=== PATIENT | male | born 1975 | race Caucasian/White ===

== ENCOUNTER 2018-05-18 08:10 | Inpatient (IN) | payer MEDICARE, OTHER ==
[2018-05-18 09:33] LABS: CKMB 1.9 ng/mL (0-6.6); Troponin I 0.079 ng/mL (< 0.028)
[2018-05-18 10:22] LABS: Bilirubin Negative (Negative); Blood, Urine Large (Negative); Clarity CLOUDY (Clear); Glucose, Urine (Dipstick) Negative (Negative); Leukocyte Large (Negative); Nitrite Negative (Negative); Protein, Urine (Dipstick) Negative (Neg-Trace); Specific Gravity, Urine 1.006 (1.002-1.036); Urobilinogen 0.2 mg/dL (0.2-1.0); pH, Urine 6.5 (5.0-9.0)
[2018-05-18 10:24] LABS: Bacteria/HPF Rare-Few HPF (None Seen); RBC/HPF GREATER THAN 50-TNTC HPF (0-3); Squamous Epithelial None Seen HPF (0-3)
[2018-05-18 10:26] LABS: Pathc Cast-AUWi Flag 3.48 (0-2.49)
[2018-05-18 10:31] LABS: Hyaline Casts/LPF 0-3 HYALINE CAST LPF (0-3 Hyaline); Manual Microscopic Reviewed? No Path Casts Seen
[2018-05-18] MEDS ORDERED: Acetaminophen 325 MG TAB PO PRN (12:47)
[2018-05-18] MEDS ORDERED: Ondansetron HCl/PF 4 MG/2 ML Vial IVP PRN (12:47)
[2018-05-18] MEDS ORDERED: Ondansetron ODT 4 MG TAB SL PRN (12:47)
[2018-05-18 13:02] LABS: Troponin I 0.067 ng/mL (< 0.028)
[2018-05-18] MEDS ORDERED: Guaifenesin DM 100-10/5 ML UDCUP PO PRN (13:13)
[2018-05-18] MEDS ORDERED: Senokot 8.6 MG TAB PO PRN (13:13)
[2018-05-18] MEDS ORDERED: Ibuprofen 200 MG TAB PO PRN (13:13)
[2018-05-18 13:27] VITALS: BMI 27.6
--- NOTE | 2018-05-18 13:53 | HP ---
REASON FOR ADMISSION: Likely sepsis with invasive urinary tract infection. HISTORY OF PRESENT ILLNESS: The patient gives history of his blood pressure being elevated to around 200 mm systolic pressures while he was trying to use the bathroom. This happened last evening. He tried to lay down and get comfortable, but he was not feeling well. Next thing he checks his blood pressure dropped down to 90s. He felt a hot myers come on him. He knew he might be getting into a urinary tract infection. The patient has known history of C6 quadriplegia and has a suprapubic catheter. On arrival in the ER, the patient had blood pressures of 90/56 with a temperature of 99 degrees. His suprapubic catheter was changed in the ER. 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 The patient's troponin was also indeterminate. He has no complaints of chest pain or palpitation. The patient has some sensation in both hands, but none in the lower extremities or on the torso. He normally uses a power chair to ambulate and mobilize himself. PAST MEDICAL/SURGICAL HISTORY: C6 injury in 1995 with quadriplegia. He is able to move upper extremities some, but not lower. History of bladder and kidney stones with lithotripsy. Has had a C6 spine surgery after injury in 1995. Has had tendon transfers done in both upper extremities to help with mobilization, suprapubic catheter. CURRENT MEDICATIONS: Ditropan extended release 10 mg daily, imipramine 25 mg twice daily, Flonase nasal spray as needed, ibuprofen 400 mg p.o. q.6 hourly p.r.n. ALLERGIES: No known drug allergies. PERSONAL HISTORY: Does not abuse alcohol or drugs. No history of smoking. Lives with his mother. FAMILY HISTORY: Mother is healthy as far as he knows. He does not know much about his father. CODE STATUS: FULL. Power of carpet repairer is his mom. REVIEW OF SYSTEMS: The following complete review of systems was negative, unless otherwise mentioned in the HPI or below: Constitutional: Weight loss or gain, ability to conduct usual activities. Skin: Rash, itching. Eyes: Double vision, pain. ENT/Mouth: Nose bleeding, neck stiffness, pain, tenderness. Cardiovascular: Palpitations, dyspnea on exertion, orthopnea. Respiratory: Shortness of breath, wheezing, cough, hemoptysis, fever or night sweats. Gastrointestinal: Poor appetite, abdominal pain, heartburn, nausea, vomiting, constipation, or diarrhea. Genitourinary: Urgency, frequency, dysuria, nocturia. Musculoskeletal: Pain, swelling. Neurologic/Psychiatric: Anxiety, depression. Allergy/Immunologic: Skin rash, bleeding tendency. PHYSICAL EXAMINATION: GENERAL: The patient is a 43-year-old male who is currently not in any acute distress. VITAL SIGNS: Blood pressure 96/54, pulse 82 per minute, respiratory rate 16 per minute, temperature 98.4 degrees Fahrenheit, saturating 94% on room air. NECK: Supple. No elevated JVD. HEENT: Extraocular muscles intact. Pupils reacting to light. Oral cavity mucous membranes are dry. No exudates or congestion. CARDIOVASCULAR: S1, S2 heard. Regular rhythm. RESPIRATORY: Air entry 1+ bilateral. No rales or rhonchi. ABDOMEN: Soft, bowel sounds heard. No tenderness, rigidity or guarding. EXTREMITIES: There is generalized wasting of most of his muscle bulk in all 4 extremities. No peripheral edema. VASCULAR: Peripheral pulses are 1+ bilateral. CENTRAL NERVOUS SYSTEM: The patient is able to move both upper extremities. He is paralyzed completely in his lower extremities. He has known history of C6 down quadriplegia. PSYCHIATRIC: No obvious hallucinations or delusions. LABORATORY AND X-RAY FINDINGS: White count 11.9, H and H 13 and 38, platelet count 231, MCV is 90 with 78% neutrophils. Serum bicarbonate 21, BUN 13, creatinine 0.6, serum glucose 117. Troponin I is indeterminate peaking up to 0.07, CK-MB 1.9. BNP 26, albumin is 3.7. UA shows large leukoesterase with 7- 10 wbc's and 4+ bacteria. Chest x-ray done shows no acute cardiopulmonary abnormalities. CT of the abdomen and pelvis done shows no acute abdominal or pelvic pathology. EKG done shows normal sinus rhythm at 65 beats per minute. There is incomplete RBBB seen. CLINICAL IMPRESSION AND PLAN: The patient will be admitted to telemetry for sepsis, likely invasive urinary tract infection with underlying suprapubic catheter. Also, obtain a cortisol level in view of his wide ranging blood pressures. He has received a liter of normal saline in the ER and we will continue him on 80 mL per hour. He will be on cefepime and vancomycin. Blood and urine cultures will be obtained. We will continue his home medications of imipramine, oxybutynin, Colace and Motrin as before. We will consult Dr. Freeman for help with Infectious Disease. Further plan will depend on his blood culture results. Echo with 2D Doppler for LV function will be obtained in view of his demand ischemia, likely from sepsis. The patient states he has had prior cardiac workup years ago. If his troponins were to trend higher up or he becomes symptomatic, might become a candidate for cardiac catheterization and will obtain Cardiology consultation based on how he progresses during his stay here. [facility]
[2018-05-18] MEDS: Sodium Chloride 0.9% 1,000 ML IV SCH (14:37)
[2018-05-18] MEDS: Cefepime 1 GM in Sodium Chloride 0.9% 100 ML IVPB SCH (14:38)
[2018-05-18] MEDS ORDERED: Vancomycin HCl 1 GM in Premix Bag 1 BAG IVPB SCH (21:00)
[2018-05-18] MEDS: Famotidine 20 MG TAB PO SCH (21:40)
[2018-05-18] MEDS: Docusate 100 MG CAP PO SCH (21:40)
[2018-05-18] MEDS: Acetaminophen 325 MG TAB PO PRN (21:42)
[2018-05-18] MEDS: Oxybutynin ER 5 MG TAB PO SCH (21:42)
[2018-05-18] MEDS: Vancomycin HCl 1.25 GM in Sodium Chloride 0.9% 250 ML 250 ML IVPB SCH (22:56)
[2018-05-18] MEDS ORDERED: Bisacodyl 10 MG SUPP PR SCH (23:00)
[2018-05-19] MEDS: Cefepime 1 GM in Sodium Chloride 0.9% 100 ML IVPB SCH ×2 (01:08→15:08)
[2018-05-19] MEDS: Sodium Chloride 0.9% 1,000 ML IV SCH (01:08)
[2018-05-19 06:43] LABS: #Basophils 0.1 thou/uL (0.0-0.2); #Eosinphils 0.2 thou/uL (0.0-0.7); #Lymphocytes 1.6 thou/uL (1.20-3.40); #Monocytes 0.4 thou/uL (0.11-0.59); #Neutrophils 3.7 thou/uL (1.40-6.50); %Basophils 1.1 % (0.0-1.0); %Eosinophils 2.7 % (0.0-10.0); %Lymphocytes 26.9 % (21.0-51.0); %Monocytes 6.9 % (0.0-10.0); %Neutrophils 62.4 % (42.0-75.0); Hemoglobin 12.4 g/dL (14.0-18.0); Mean Corpuscular HGB CONC 33.9 g/dL (32.0-36.0); Mean Corpuscular Hemoglobin 31.5 pg (27.0-31.0); Mean Corpuscular Volume 92.8 fL (78.0-98.0); Mean Platelet Volume 7.6 fL (7.4-10.4); Platelet Count 198 thou/uL (130-400); RBC Distribution Width 11.3 % (11.5-14.5); Red Blood Cell (RBC) Count 3.95 mill/uL (4.70-6.10); White Blood Cell (WBC) Count 5.9 thou/uL (4.8-10.8)
[2018-05-19 07:00] LABS: Anion Gap 8 mmol/L (10-20); BUN (Urea Nitrogen) 4 mg/dL (8.9-20.6); Calc. Creatinine Clearance 218 mL/min (70-130); Calcium 8.5 mg/dL (7.8-10.44); Carbon Dioxide 23 mmol/L (22-29); Chloride 111 mmol/L (98-107); Estimated GFR-MDRD Greater than 90; Glucose 91 mg/dL (70-105); Sodium 138 mmol/L (136-145)
[2018-05-19] MEDS: Docusate 100 MG CAP PO SCH ×2 (09:48→21:38)
[2018-05-19] MEDS: Famotidine 20 MG TAB PO SCH ×2 (09:48→20:39)
[2018-05-19] MEDS: Oxybutynin ER 5 MG TAB PO SCH ×2 (09:48→20:40)
[2018-05-19] MEDS: Vancomycin HCl 1.25 GM in Sodium Chloride 0.9% 250 ML 250 ML IVPB SCH ×3 (09:49→21:29)
[2018-05-19] MEDS: Enoxaparin Sodium 40 MG/0.4 ML SYRINGE SC SCH (09:51)
[2018-05-19] MEDS: Acetaminophen 325 MG TAB PO PRN ×2 (10:10→18:11)
[2018-05-19] MEDS ORDERED: Artificial Tear Sol 15 ML BOT EA EYE PRN (12:40)
--- NOTE | 2018-05-19 12:45 | PDOC.PN ---
- Subjective Encounter Start Date: 05/19/18 Encounter Start Time: 12:44 -: old records requested/rev Pt seen and examined, cahrt reviewed in its entirety, this is my first visit with this patient. Follow up for Catheter associated UTI, preent on admit, growing 3 GNR at present. afebrile, tolerating cefepime 1q IV q 12 no F/C, no N/V/D/C, no CP or sOB all systems reviewed and neg x as above - Objective Resuscitation Status: Resuscitation Status FULL:Full Resuscitation MAR Reviewed: Yes Vital Signs & Weight: Vital Signs (12 hours) Temp Pulse Resp BP Pulse Ox 05/19/18 09:42 98.0 F 74 16 142/83 H 97 05/19/18 03:44 97.9 F 81 14 143/78 H 98 Weight Weight 181 lb 11.2 oz I&O: 05/18/18 05/19/18 05/20/18 06:59 06:59 06:59 Intake Total 1680 Output Total 2600 Balance -920 Result Diagrams: 05/19/18 06:21 05/19/18 06:21 Radiology Reviewed by me: Yes EKG Reviewed by me: Yes Phys Exam - Physical Examination Constitutional: NAD HEENT: PERRLA, moist MMs, sclera anicteric, oral pharynx no lesions Neck: no nodes, no JVD, supple, full ROM Respiratory: no wheezing, no rales, no rhonchi, clear to auscultation bilateral Cardiovascular: RRR, no significant murmur, no rub Gastrointestinal: soft, non-tender, no distention, positive bowel sounds Musculoskeletal: no edema Lymphatic: no nodes Psychiatric: normal affect, A&O x 3 Skin: no rash, normal turgor, cap refill <2 seconds Dx/Plan (1) Catheter-associated urinary tract infection Code(s): T83.511A - I/I REACT D/T INDWELLING URETHRAL CATHETER, INIT; N39.0 - URINARY TRACT INFECTION, SITE NOT SPECIFIED Status: Acute Qualifiers: Indwelling urinary catheter type: cystostomy catheter Encounter type: initial encounter Qualified Code(s): T83.510A - Infection and inflammatory reaction due to cystostomy catheter, initial encounter; N39.0 - Urinary tract infection, site not specified Comment: present on admit, GNR X 3, ncluding presumptive pseudomonas (2) Sepsis Code(s): A41.9 - SEPSIS, UNSPECIFIED ORGANISM Status: Resolved Qualifiers: Sepsis type: sepsis due to unspecified organism Qualified Code(s): A41.9 - Sepsis, unspecified organism (3) Demand ischemia Code(s): I24.8 - OTHER FORMS OF ACUTE ISCHEMIC HEART DISEASE Status: Acute (4) Quadriplegia, unspecified Code(s): G82.50 - QUADRIPLEGIA, UNSPECIFIED Status: Chronic - Plan cont current plan of care, plan discussed w/ family, continue antibiotics * .
[2018-05-19 15:47] LABS: Vancomycin, Trough 24.6 ug/mL
--- NOTE | 2018-05-19 18:07 | CON ---
DATE OF CONSULTATION: 05/19/2018 REASON FOR CONSULTATION: Quadriplegia with general malaise and autonomic dysreflexia episode with concern for infection. HISTORY OF PRESENT ILLNESS: A 43-year-old gentleman with history of C6 injury with partial quadriplegia in 1995, neurogenic bladder with suprapubic catheter, prior nephrolithiasis, which required lithotripsy, who has also a history of autonomic dysreflexia and this time developed general malaise, facial flushing, hypotension and then hypertension with a top systolic blood pressure of 200 and bottom down in the 90s. He was brought to the emergency room where his BP was 90/56. Suprapubic catheter change in the emergency room. Did not have any headaches, no visual symptoms. No dyspnea, cough or chest pain. Does not have sensation in the abdomen, but he felt what he describes as sickness in the stomach. He does not recall any obstruction of the suprapubic catheter. He did not notice any change in the color or fever in the home setting. PAST MEDICAL HISTORY: C6 injury; quadriplegia, which is partial; nephrolithiasis, which has required invasive procedures in the recent past. CURRENT MEDICATIONS: Tylenol, cefepime, Colace, Lovenox, Pepcid, Robitussin, Motrin, senna, vancomycin. ALLERGIES: None. FAMILY HISTORY: Noncontributory. PHYSICAL EXAMINATION: VITAL SIGNS: T-max 97-98, blood pressure 130/70, pulse 74, respiration 16, O2 sat 96%. SKIN: Shows no areas of skin breakdown. Patient has a peripheral IV access and suprapubic catheter with normal appearing exit site. No lymphadenopathy. HEENT: Ocular movements conjugate. Oral cavity normal. NECK: Supple. LUNGS: With symmetric air entry. HEART: S1, S2, regular rate. ABDOMEN: Soft, not distended. BACK: The patient has partial quadriplegia. EXTREMITIES: Trace edema lower extremities. IMAGING: CT abdomen showed no acute abdominal and pelvic pathology. The bladder was found to be collapsed around the catheter and a chest x-ray demonstrated no evidence of acute cardiopulmonary process. LABORATORY DATA: White cell count 5.9, hemoglobin 12.4, platelets 198 with normal differential. Sodium 138, creatinine 0.51. Urinalysis with greater than 50 to too numerous to count WBCs. Cultures with Pseudomonas 25,000-50,000 and 2 other gram negative rods 25,000-50,000 CFUs. ASSESSMENT: 1. Incomplete quadriplegia, history of autonomic dysreflexia. 2. Neurogenic bladder with abnormal urinalysis. Concern for infection. DISCUSSION: The patient presented with those nonspecific symptoms and signs. The urinalysis will necessarily be abnormal in patients with suprapubic catheters colonized and we cannot necessarily blame this finding for the patient 's symptoms and signs that he presented with. He did not have a white cell count elevation or left shift and the blood cultures have remained negative thus far. Other possibilities including thromboembolism need to be considered. He did not have any intra-abdominal inflammatory process or obstructive process noticed in his abdominal CT scan. So, may consider a workup for thromboembolism to complete the evaluation in terms of continue antimicrobial therapy. If the blood cultures remain negative, I would discontinue antimicrobials. HAMLETD
[2018-05-20] MEDS ORDERED: Bisacodyl 10 MG SUPP PR SCH ×2 (00:15→21:00)
[2018-05-20] MEDS: Cefepime 1 GM in Sodium Chloride 0.9% 100 ML IVPB SCH (01:49)
[2018-05-20 06:01] LABS: #Basophils 0.1 thou/uL (0.0-0.2); #Eosinphils 0.2 thou/uL (0.0-0.7); #Lymphocytes 1.5 thou/uL (1.20-3.40); #Monocytes 0.5 thou/uL (0.11-0.59); #Neutrophils 5.3 thou/uL (1.40-6.50); %Basophils 0.8 % (0.0-1.0); %Eosinophils 2.6 % (0.0-10.0); %Lymphocytes 20.2 % (21.0-51.0); %Monocytes 6.2 % (0.0-10.0); %Neutrophils 70.2 % (42.0-75.0); Hemoglobin 13.1 g/dL (14.0-18.0); Mean Corpuscular HGB CONC 34.3 g/dL (32.0-36.0); Mean Corpuscular Hemoglobin 31.4 pg (27.0-31.0); Mean Corpuscular Volume 91.7 fL (78.0-98.0); Mean Platelet Volume 7.4 fL (7.4-10.4); Platelet Count 217 thou/uL (130-400); RBC Distribution Width 11.3 % (11.5-14.5); Red Blood Cell (RBC) Count 4.17 mill/uL (4.70-6.10); White Blood Cell (WBC) Count 7.5 thou/uL (4.8-10.8)
[2018-05-20 06:22] LABS: Anion Gap 13 mmol/L (10-20); BUN (Urea Nitrogen) 6 mg/dL (8.9-20.6); Calc. Creatinine Clearance 191 mL/min (70-130); Calcium 8.9 mg/dL (7.8-10.44); Carbon Dioxide 23 mmol/L (22-29); Chloride 107 mmol/L (98-107); Estimated GFR-MDRD Greater than 90; Glucose 90 mg/dL (70-105); Magnesium 2.5 mg/dL (1.6-2.6); Potassium 4.3 mmol/L (3.5-5.1); Sodium 139 mmol/L (136-145)
[2018-05-20] MEDS: Docusate 100 MG CAP PO SCH (08:38)
[2018-05-20] MEDS: Vancomycin HCl 1.25 GM in Sodium Chloride 0.9% 250 ML 250 ML IVPB SCH (08:38)
[2018-05-20] MEDS: Famotidine 20 MG TAB PO SCH (08:38)
[2018-05-20] MEDS: Enoxaparin Sodium 40 MG/0.4 ML SYRINGE SC SCH (08:38)
[2018-05-20] MEDS: Oxybutynin ER 5 MG TAB PO SCH (08:39)
[2018-05-20 12:29] VITALS: BP 107/62; TEMP 98.3
--- NOTE | 2018-05-20 15:12 | DIS ---
DATE OF ADMISSION: 05/18/2018 DATE OF DISCHARGE: 05/20/2018 PRIMARY CARE PHYSICIAN: Donna Wells D.O. PRIMARY INFECTIOUS DISEASE DOCTOR: Keaton Freeman M.D. PRIMARY UROLOGIST: Neal Dominguez M.D. DISCHARGE DIAGNOSES: 1. Complicated urinary tract infection, catheter associated, present on admission. 2. Sepsis, present on admission, resolved. 3. C6 quadriplegia. 4. Demand ischemia. 5. History of nephrolithiasis. CONSULTATIONS: Dr. Keaton Freeman, 05/19/2018. PROCEDURES: Echocardiogram, 05/19/2018 showed an EF of 60%-65%, mild MR, mild TR. HISTORY AND PHYSICAL: Mr. Segundo is a 43-year-old gentleman with a C6 quadriplegia. He has a chronic indwelling suprapubic catheter. He developed general malaise and a spike in his blood pressure, cam e to the emergency department for evaluation. Workup showed urinary tract infection, both pre and post suprapubic catheter change. He was slightly hypotensive on admission, but responded well to fluids. We were subsequently called for admit. HOSPITAL COURSE: The patient was seen and examined by Dr. Khoury on 05/18/2018. He was continu ed on cefepime for UTI. Infectious Disease consultation was requested. Overnight, 05/18/2018 to 05/19/2018, the patient did well. He was afebrile. He did have some elevat ed blood pressure in the 140s, but did well after I discontinued his fluids. He was seen by Dr. Shiva wilcox that evening, recommended a workup for thromboembolism, which to this date has been negative. Bloo d cultures remain negative, urine cultures growing out multiple germs including E. coli, 2 species of Klebsiella, low colony counts of Staph aureus, which he has not had previously and gamma strep likel y Enterococcus, which he has had that has been susceptible. Review of his previous cultures show he is ESBL positive, but has been sensitive Klebsiella species and sensitive to the other organism s. The patient was requesting to go home, he was subsequently transitioned to p.o. levofloxacin and agreed to follow up with Dr. Donna Wells for followup of his culture results. The patient had no further fevers on antibiotics. An initial urinalysis did show pyuria. The patient was transitioned to p.o. antibiotics to complete 14 days and was subsequently discharged home. PHYSICAL EXAMINATION: The patient was seen and examined on the day of discharge. Discharge plan and disposition were discussed with the patient [id number] at the bedside. DISCHARGE MEDICATIONS: New medications, 1. Levofloxacin 500 mg daily for 12 more days. 2. Ibuprofen as needed. 3. Tofranil 25 mg daily. 4. Ditropan XL 10 mg daily. 5. Oxymetazoline 1 spray nasally daily. 6. Sodium chloride nasal spray daily. 7. Docusate 100 mg p.o. b.i.d. FOLLOWUP APPOINTMENTS: 1. Primary care physician, Dr. Wells within a week. 2. Dr. Dominguez as scheduled. DISCHARGE ACTIVITY: As tolerated. DISCHARGE DIET: No restrictions. DISCHARGE CONDITION: Stable. DISPOSITION: Discharged to home via private vehicle.
--- NOTE | 2018-05-24 13:19 | EKG ---
Test Reason : Blood Pressure : / mmHG Vent. Rate : 065 BPM Atrial Rate : 065 BPM P-R Int : 172 ms QRS Dur : 092 ms QT Int : 420 ms P-R-T Axes : 026 091 043 degrees QTc Int : 436 ms Normal sinus rhythm Possible Left atrial enlargement Rightward axis Incomplete right bundle branch block Borderline ECG Confirmed by CHARLY REED ([id number]), sound editor YADI ESPINOSA ([id number]) on 05/24/2018 1:19:28 PM Referred By: Confirmed By:CHARLY REED
== END 2018-05-20 14:26 | disposition home or self-care (01) | DRG 698 ==
LOC: ERS 08:10 → 2NO 12:17
PROVIDERS: ADMIT Internal Medicine; ATTEND Internal Medicine
DX: T83.511A Infection and inflammatory reaction due to indwelling urethral catheter, initial encounter (principal); A41.9 Sepsis, unspecified organism; G82.54 Quadriplegia, C5-C7 incomplete; I24.8 Other forms of acute ischemic heart disease; N39.0 Urinary tract infection, site not specified; Y84.6 Urinary catheterization as the cause of abnormal reaction of the patient, or of later complication, without mention of misadventure at the time of the procedure; B96.20 Unspecified Escherichia coli [E. coli] as the cause of diseases classified elsewhere; B96.1 Klebsiella pneumoniae [K. pneumoniae] as the cause of diseases classified elsewhere; B95.61 Methicillin susceptible Staphylococcus aureus infection as the cause of diseases classified elsewhere; B95.2 Enterococcus as the cause of diseases classified elsewhere; Z87.442 Personal history of urinary calculi; N31.9 Neuromuscular dysfunction of bladder, unspecified; G90.4 Autonomic dysreflexia
CPT/HCPCS: 36415; 80048; 80202; 82533; 82553; 83605; 83735; 85025; 87040; 87076; 87077; 87086; 87186; 93005; 93306; 96360; 96361; G8987-GO-CM; G8988-GO-CM; G8989-GO-CM; J0692; J1650; J3370; J7050

== ENCOUNTER 2019-10-08 16:36 | Outpatient (CLI) | payer MEDICARE, MEDICAID ==
[2019-10-08 17:24] LABS: Hemoglobin 14.6 g/dL (14.0-18.0); Mean Corpuscular HGB CONC 31.8 g/dL (32.0-36.0); Mean Corpuscular Hemoglobin 28.4 pg (27.0-31.0); Mean Corpuscular Volume 89.5 fL (78.0-98.0); Mean Platelet Volume 7.7 fL (7.4-10.4); Platelet Count 272 thou/uL (130-400); RBC Distribution Width 11.5 % (11.5-14.5); Red Blood Cell (RBC) Count 5.14 mill/uL (4.70-6.10); White Blood Cell (WBC) Count 9.5 thou/uL (4.8-10.8)
[2019-10-08 17:29] LABS: INR-International Normal Ratio 1.1; PTT 32.6 SEC (22.9-36.1); Prothrombin Time 14.1 SEC (12.0-14.7)
[2019-10-08 17:41] LABS: Anion Gap 9 mmol/L (10-20); BUN (Urea Nitrogen) 8 mg/dL (8.9-20.6); Calc. Creatinine Clearance 0 mL/min (70-130); Calcium 10.3 mg/dL (7.8-10.44); Carbon Dioxide 28 mmol/L (22-29); Chloride 103 mmol/L (98-107); Estimated GFR-MDRD Greater than 90; Glucose 65 mg/dL (70-105); Potassium 4.2 mmol/L (3.5-5.1); Sodium 136 mmol/L (136-145)
== END 2019-10-08 16:37 | disposition home or self-care (01) ==
LOC: LABBT 16:36
PROVIDERS: ATTEND Urology
DX: Z01.818 Encounter for other preprocedural examination (principal); N21.0 Calculus in bladder
CPT/HCPCS: 80048; 85027; 85610; 85730; 93005; 93010

== ENCOUNTER 2019-10-15 06:08 | Day surgery (SDC) | payer MEDICARE, MEDICAID ==
[2019-10-08 16:10] VITALS: BMI 25.8
[2019-10-15] MEDS ORDERED: Fentanyl 100 MCG/2 ML VIAL ONE (08:33)
[2019-10-15] MEDS ORDERED: Midazolam HCl 2 mg/2 ml Vial ONE (08:33)
[2019-10-15] MEDS ORDERED: B & O ONE (08:33)
[2019-10-15] MEDS ORDERED: Sodium Chloride 0.9% 100 ML ONE (08:36)
[2019-10-15] MEDS ORDERED: cefTRIAXone\\ROCEPHIN 2 GM VIAL ONE (08:36)
--- NOTE | 2019-10-15 14:08 | OP ---
DATE OF PROCEDURE: 10/15/2019 SERVICE: Urology. PREOPERATIVE DIAGNOSES: Bladder stones, neurogenic bladder, and spinal cord injury. POSTOPERATIVE DIAGNOSES: Bladder stone, neurogenic bladder, and spinal cord injury. PROCEDURE PERFORMED: Cystolitholapaxy of approximately a total of 4 cm worth of stone. INDICATION FOR PROCEDURE: Mr. Segundo is a 44-year-old white male with a spinal cord injury and neurogenic bladder. He does have partial quadriplegia. He is managed with an indwelling SP tube. He has fairly severe bladder spasms, which was recently treated with Botox injections, which seems to be working well. During the cystoscopy, it was noted that he had multiple bladder stones. I discussed treatment of these bladder stones before they became very large, and risks and benefits of the surgery, and he wished to proceed forward. DESCRIPTION OF PROCEDURE: After identification of armband and verification of consent, the patient was brought back to the operating room, where he underwent general anesthesia with an LMA. The decision to use anesthesia was primarily secondary to the patient's history of autonomic dysreflexia rather than for pain management. After appropriate time-out, the patient was placed into dorsal lithotomy position and prepped and draped in usual sterile fashion. A 22-H[place]er rigid cystoscope was introduced per urethra into the bladder. The SP tube was left in place as a drainage system to prevent overdistention of the bladder and for irrigation of stone fragments. Periodically, the SP tube was clamped to allow for cessation of flow for fragmentation of further stones. Using a 550-micron laser fiber, the stones were fragmented into very small pieces and the pieces were then irrigated out with a combination of the cystoscope and an Ellik evacuator. Upon completion, all the stone fragments were removed. Final cystoscopy into the bladder demonstrated both ureters in orthotopic location, unharmed. The SP tube was in good location. The balloon was still intact and was draining well. There was no encrustation on the tubing. Both ureters were unharmed at the end of the procedure. All fragments were removed. Satisfied, the cystoscope was then removed and the bladder was drained via the SP tube. The patient was then taken out of positioning, awakened, and taken to PACU for recovery in stable condition. COMPLICATIONS: None. ESTIMATED BLOOD LOSS: Minimal. RETAINED TUBES AND DRAINS: The patient's known 22-[place]er SP tube, which is left to gravity drainage. SPECIMENS: Stone for stone analysis. DISPOSITION: The patient will be discharged home and follow up with me in approximately 1 to 2 weeks for a postop check. Job ID: [id number]
[2019-10-15] MEDS ORDERED: Lidocaine 1% PF 5 ML VIAL ONE (15:03)
[2019-10-15] MEDS ORDERED: Ondansetron PF 4 MG/2 ML Vial ONE (15:03)
[2019-10-15] MEDS ORDERED: PROPOFOL 200 MG/20 ML VIAL ONE (15:03)
== END 2019-10-15 11:40 | disposition home or self-care (01) ==
LOC: SDC 06:08
PROVIDERS: ATTEND Urology
PROC: 0TCB8ZZ Extirpation of Matter from Bladder, Via Natural or Artificial Opening Endoscopic (ICD-10-PCS; principal; 2019-10-15)
DX: N21.0 Calculus in bladder (principal); N32.89 Other specified disorders of bladder; N31.9 Neuromuscular dysfunction of bladder, unspecified; G82.54 Quadriplegia, C5-C7 incomplete; S14.105S Unspecified injury at C5 level of cervical spinal cord, sequela; Z87.440 Personal history of urinary (tract) infections; Z87.891 Personal history of nicotine dependence; Z79.899 Other long term (current) drug therapy; X58.XXXS Exposure to other specified factors, sequela
CPT/HCPCS: 82365; 88300; J0696; J2001; J2250; J2405; J2704; J3010; J3490

== ENCOUNTER 2023-07-21 17:06 | Inpatient (IN) | payer OTHER, MEDICAID ==
[~2023-07-21 17:06] MED LIST: Iopamidol-370 76% 500 ML MDV (1 ML CHARGE) ONE
[2023-07-21 17:36] LABS: Bacteria/HPF 4+ HPF (None Seen); Bilirubin Negative (Negative); Blood, Urine Trace (Negative); CAUTI Indications for Culture Pelvic or flank pain; Clarity Turbid (Clear); Glucose, Urine (Dipstick) Normal (Negative); Ketone, Urine Negative (Negative); Leukocyte 500 Leu/uL (Negative); Nitrite Negative (Negative); Protein, Urine (Dipstick) 30 mg/dL (Neg-Trace); RBC/HPF 0-3 HPF (0-3); Specific Gravity, Urine 1.004 (1.002-1.036); Squamous Epithelial None Seen HPF (0-3); Urobilinogen Normal mg/dL (Less than 2)
[2023-07-21 17:37] LABS: Urine Culture Reflex Yes Yes
[2023-07-21 17:43] LABS: #Basophils 0.1 thou/uL (0.0-0.2); #Monocytes 0.9 thou/uL (0.11-0.59); #Neutrophils 11.8 thou/uL (1.40-6.50); %Basophils 0.7 % (0.0-1.0); %Eosinophils 0.3 % (0.0-10.0); %Lymphocytes 6.3 % (21.0-51.0); %Monocytes 6.5 % (0.0-10.0); %Neutrophils 85.6 % (42.0-75.0); Hematocrit 43.6 % (42.0-52.0); Hemoglobin 14.6 g/dL (14.0-18.0); Mean Corpuscular HGB CONC 33.5 g/dL (32.0-36.0); Mean Corpuscular Hemoglobin 30.2 pg (27.0-31.0); Mean Corpuscular Volume 90.3 fl (78.0-98.0); Mean Platelet Volume 9.7 fL (7.4-10.4); Platelet Count 301 10x3/uL (130-400); Red Blood Cell (RBC) Count 4.83 mill/uL (4.70-6.10); White Blood Cell (WBC) Count 13.8 10x3/uL (4.8-10.8)
[2023-07-21] MEDS ORDERED: fentaNYL 50 mcg/mL 1 mL Vial ONE ×2 (18:16→19:52)
[2023-07-21] MEDS ORDERED: Cefepime 2 GM VIAL ONE (18:16)
[2023-07-21] MEDS ORDERED: Sodium Chloride 0.9% 100 ML ONE ×2 (18:16→19:32)
[2023-07-21 18:17] LABS: ALT (SGPT) 25 U/L (8-55); AST (SGOT) 17 U/L (5-34); Albumin 4.5 g/dL (3.5-5.0); Alkaline Phosphatase 81 U/L (40-110); Anion Gap 17 mmol/L (10-20); BUN (Urea Nitrogen) 11 mg/dL (8.9-20.6); Bilirubin, Total 0.4 mg/dL (0.2-1.2); Calc. Creatinine Clearance 0 mL/min (70-130); Calcium 9.3 mg/dL (7.8-10.44); Carbon Dioxide 22 mmol/L (22-29); Chloride 102 mmol/L (98-107); Estimated GFR 116; Globulin 2.7 g/dL (2.4-3.5); Glucose 121 mg/dL (70-105); Lipase 160 U/L (8-78); Potassium 4.4 mmol/L (3.5-5.1); Protein, Total 7.2 g/dL (6.0-8.3); Sodium 137 mmol/L (136-145)
[2023-07-21] MEDS ORDERED: Morphine 4 MG/ML VIAL ONE (19:26)
[2023-07-21] MEDS ORDERED: Piperacillin/Tazobactam 4.5 GM VIAL ONE (19:32)
[2023-07-21] MEDS ORDERED: Acetaminophen 650 MG Suppository PR PRN (21:58)
[2023-07-21 23:47] VITALS: BMI 24.7
[2023-07-22] MEDS: Morphine 2 MG/ML VIAL SLOW IVP PRN ×3 (00:16→12:13)
[2023-07-22] MEDS: Ondansetron PF 4 MG/2 ML Vial IVP PRN ×2 (00:37→12:17)
[2023-07-22] MEDS ORDERED: fentaNYL PF 100 MCG/2 ML SYRINGE ONE (01:03)
[2023-07-22] MEDS ORDERED: PROPOFOL 20 ML ONE (01:03)
[2023-07-22] MEDS ORDERED: Lidocaine 2% 6 ML (Jelly) SYR ONE (01:04)
[2023-07-22] MEDS ORDERED: Lidocaine 2% PF 5 ML VIAL ONE (01:04)
[2023-07-22] MEDS ORDERED: Lidocaine 1% PF 5 ML VIAL ONE (01:28)
[2023-07-22] MEDS ORDERED: PROPOFOL 200 MG/20 ML VIAL ONE (01:28)
[2023-07-22] MEDS ORDERED: Ondansetron HCl/PF 4 MG/2 ML Vial IVP PRN (02:20)
[2023-07-22] MEDS ORDERED: Promethazine HCl 25 MG/ML VIAL IM PRN (02:20)
[2023-07-22] MEDS: Piperacillin/Tazobactam 3.375 GM in Sodium Chloride 0.9% 100 ML IVPB SCH ×4 (02:33→23:49)
[2023-07-22] MEDS ORDERED: Ketorolac Tromethamine 30 MG/ML VIAL IVP PRN (02:59)
[2023-07-22] MEDS ORDERED: Iopamidol 15 ML ONE (03:39)
[2023-07-22 04:30] LABS: #Basophils 0.1 thou/uL (0.0-0.2); #Eosinphils 0.1 thou/uL (0.0-0.7); #Monocytes 0.7 thou/uL (0.11-0.59); #Neutrophils 6.9 thou/uL (1.40-6.50); %Basophils 0.6 % (0.0-1.0); %Eosinophils 0.6 % (0.0-10.0); %Lymphocytes 17.7 % (21.0-51.0); %Monocytes 7.4 % (0.0-10.0); %Neutrophils 73.4 % (42.0-75.0); Hematocrit 38.1 % (42.0-52.0); Hemoglobin 12.5 g/dL (14.0-18.0); Mean Corpuscular HGB CONC 32.8 g/dL (32.0-36.0); Mean Corpuscular Hemoglobin 30.5 pg (27.0-31.0); Mean Corpuscular Volume 92.9 fl (78.0-98.0); Mean Platelet Volume 9.8 fL (7.4-10.4); Platelet Count 226 10x3/uL (130-400); RBC Distribution Width 12.3 % (11.5-14.5); White Blood Cell (WBC) Count 9.4 10x3/uL (4.8-10.8)
[2023-07-22] MEDS ORDERED: Piperacillin/Tazobactam 4.5 GM in Sodium Chloride 0.9% 100 ML IVPB SCH (06:00)
[2023-07-22 06:45] LABS: Anion Gap 16 mmol/L (10-20); BUN (Urea Nitrogen) 6 mg/dL (8.9-20.6); Calc. Creatinine Clearance 181 mL/min (70-130); Carbon Dioxide 20 mmol/L (22-29); Chloride 109 mmol/L (98-107); Estimated GFR 124; Glucose 98 mg/dL (70-105); Potassium 3.5 mmol/L (3.5-5.1); Sodium 141 mmol/L (136-145)
[2023-07-22] MEDS: Acetaminophen 325 MG TAB PO PRN ×2 (08:21→14:06)
[2023-07-22] MEDS: Famotidine 20 MG TAB PO SCH ×2 (08:21→19:49)
[2023-07-22] MEDS: Famotidine/PF 20 mg/2ml Vial SLOW IVP SCH ×2 (08:27→20:03)
[2023-07-22] MEDS ORDERED: Adenosine 6 MG/2 ML VIAL IVP SCH (13:00)
[2023-07-22] MEDS ORDERED: fentaNYL 50 mcg/mL 1 mL Vial SLOW IVP SCH ×2 (13:30→15:00)
[2023-07-22] MEDS: Baclofen 10 MG TAB PO PRN (14:02)
[2023-07-22] MEDS ORDERED: Lorazepam 2 MG/ML VIAL SLOW IVP SCH (14:15)
[2023-07-22] MEDS ORDERED: Hyoscyamine SL 0.125 MG TAB SL SCH (15:00)
[2023-07-22] MEDS: Oxybutynin 5 MG TAB PO SCH ×2 (15:04→19:49)
[2023-07-22] MEDS: Hyoscyamine SL 0.125 MG TAB SL PRN (21:46)
[2023-07-22] MEDS: Ondansetron ODT 4 MG TAB PO PRN (21:54)
[2023-07-23] MEDS: Morphine 4 MG/ML VIAL SLOW IVP PRN ×2 (00:50→10:06)
[2023-07-23] MEDS: Hyoscyamine SL 0.125 MG TAB SL PRN ×3 (02:05→19:36)
[2023-07-23] MEDS: Oxybutynin 5 MG TAB PO SCH ×3 (06:40→21:25)
[2023-07-23] MEDS: Baclofen 10 MG TAB PO PRN ×3 (06:47→19:36)
[2023-07-23] MEDS: Ondansetron PF 4 MG/2 ML Vial IVP PRN ×2 (06:47→19:40)
[2023-07-23] MEDS: Famotidine 20 MG TAB PO SCH ×2 (08:43→21:00)
[2023-07-23] MEDS: Famotidine/PF 20 mg/2ml Vial SLOW IVP SCH ×2 (08:43→21:26)
[2023-07-23] MEDS: Piperacillin/Tazobactam 3.375 GM in Sodium Chloride 0.9% 100 ML IVPB SCH ×2 (08:43→16:19)
[2023-07-23] MEDS: Mirabegron ER 25 MG ER.TAB PO SCH (09:55)
[2023-07-23] MEDS ORDERED: Ondansetron PF 4 MG/2 ML Vial IVP PRN (10:30)
[2023-07-23] MEDS: Bisacodyl 10 MG SUPP PR SCH (11:01)
[2023-07-23] MEDS ORDERED: Metoprolol Tartrate 5 MG/5 ML VIAL IVP SCH (11:21)
[2023-07-23] MEDS ORDERED: Metoprolol Tartrate 5 MG/5 ML VIAL ONE (11:27)
[2023-07-23] MEDS ORDERED: Esmolol 2,500 MG/250 ML 250 ML IVPB SCH (11:30)
[2023-07-23] MEDS ORDERED: fentaNYL 50 mcg/mL 1 mL Vial ONE (12:58)
[2023-07-23] MEDS ORDERED: fentaNYL 50 mcg/mL 1 mL Vial SLOW IVP SCH (13:15)
[2023-07-23] MEDS ORDERED: Polyethylene Glycol 3350 17 GM Packet PO SCH (16:30)
[2023-07-23] MEDS: fentaNYL 50 mcg/mL 1 mL Vial SLOW IVP PRN (19:42)
[2023-07-23] MEDS: Baclofen 10 MG TAB PO SCH (21:00)
[2023-07-23] MEDS: Acetaminophen 325 MG TAB PO PRN (21:41)
[2023-07-24] MEDS: Piperacillin/Tazobactam 3.375 GM in Sodium Chloride 0.9% 100 ML IVPB SCH ×4 (00:20→23:47)
[2023-07-24 05:00] LABS: #Basophils 0.1 thou/uL (0.0-0.2); #Eosinphils 0.1 thou/uL (0.0-0.7); #Monocytes 0.6 thou/uL (0.11-0.59); #Neutrophils 7.7 thou/uL (1.40-6.50); %Eosinophils 0.9 % (0.0-10.0); %Lymphocytes 13.3 % (21.0-51.0); %Monocytes 5.6 % (0.0-10.0); %Neutrophils 78.4 % (42.0-75.0); Hematocrit 35.5 % (42.0-52.0); Hemoglobin 11.5 g/dL (14.0-18.0); Mean Corpuscular HGB CONC 32.4 g/dL (32.0-36.0); Mean Corpuscular Hemoglobin 30.5 pg (27.0-31.0); Mean Corpuscular Volume 94.2 fl (78.0-98.0); Mean Platelet Volume 10.1 fL (7.4-10.4); Platelet Count 234 10x3/uL (130-400); RBC Distribution Width 12.6 % (11.5-14.5); Red Blood Cell (RBC) Count 3.77 mill/uL (4.70-6.10); White Blood Cell (WBC) Count 9.9 10x3/uL (4.8-10.8)
[2023-07-24 05:34] LABS: Anion Gap 19 mmol/L (10-20); BUN (Urea Nitrogen) 4 mg/dL (8.9-20.6); Calc. Creatinine Clearance 160 mL/min (70-130); Calcium 8.2 mg/dL (7.8-10.44); Carbon Dioxide 17 mmol/L (22-29); Chloride 107 mmol/L (98-107); Estimated GFR 120; Glucose 64 mg/dL (70-105); Potassium 3.5 mmol/L (3.5-5.1); Sodium 139 mmol/L (136-145)
[2023-07-24] MEDS: Hyoscyamine SL 0.125 MG TAB SL PRN ×2 (05:56→21:55)
[2023-07-24] MEDS: Mirabegron ER 25 MG ER.TAB PO SCH (07:41)
[2023-07-24] MEDS: Famotidine 20 MG TAB PO SCH (07:41)
[2023-07-24] MEDS: Bisacodyl 10 MG SUPP PR SCH (07:42)
[2023-07-24] MEDS: Famotidine/PF 20 mg/2ml Vial SLOW IVP SCH (07:42)
[2023-07-24] MEDS: Oxybutynin 5 MG TAB PO SCH ×3 (07:42→20:26)
[2023-07-24] MEDS: Polyethylene Glycol 3350 17 GM Packet PO SCH (07:43)
[2023-07-24] MEDS: Ondansetron PF 4 MG/2 ML Vial IVP PRN ×3 (07:49→17:18)
[2023-07-24] MEDS: fentaNYL 50 mcg/mL 1 mL Vial SLOW IVP PRN ×7 (07:57→21:54)
[2023-07-24] MEDS: Acetaminophen 325 MG TAB PO PRN ×2 (08:44→16:55)
[2023-07-24] MEDS: Baclofen 10 MG TAB PO PRN ×2 (09:29→17:02)
[2023-07-24] MEDS ORDERED: Morphine 4 MG/ML VIAL SLOW IVP SCH (09:30)
[2023-07-24] MEDS: Ondansetron ODT 4 MG TAB PO PRN (19:22)
[2023-07-24] MEDS: Metoprolol Tartrate 25 MG TAB PO SCH (20:25)
[2023-07-24] MEDS: Baclofen 10 MG TAB PO SCH (20:26)
[2023-07-24] MEDS ORDERED: Simethicone Chewable 80 MG TAB PO SCH (22:15)
[2023-07-24] MEDS ORDERED: Sodium Chloride 0.9% 500 ML IV SCH (23:45)
[2023-07-24] MEDS ORDERED: FLU VACC QS2023-24(6MOS UP)/PF 60 MCG/0.5 ML SYRINGE IM ONE (23:45)
[2023-07-25] MEDS: D5 1/2 NS w/10 mEq KCl 1,000 ML/1,000 ML BAG IV SCH ×2 (00:04→13:17)
[2023-07-25] MEDS: fentaNYL 50 mcg/mL 1 mL Vial SLOW IVP PRN ×6 (01:20→19:04)
[2023-07-25] MEDS: Baclofen 10 MG TAB PO PRN ×2 (06:26→14:16)
[2023-07-25] MEDS: Ondansetron ODT 4 MG TAB PO PRN (06:52)
[2023-07-25] MEDS: Piperacillin/Tazobactam 3.375 GM in Sodium Chloride 0.9% 100 ML IVPB SCH ×2 (08:29→16:11)
[2023-07-25] MEDS: Metoprolol Tartrate 25 MG TAB PO SCH ×2 (08:55→21:47)
[2023-07-25] MEDS: Bisacodyl 10 MG SUPP PR SCH (09:09)
[2023-07-25] MEDS: Mirabegron ER 25 MG ER.TAB PO SCH (09:11)
[2023-07-25] MEDS: Polyethylene Glycol 3350 17 GM Packet PO SCH (09:12)
[2023-07-25] MEDS: Oxybutynin 5 MG TAB PO SCH ×3 (09:14→20:13)
[2023-07-25] MEDS ORDERED: Magnesium Oxide 400 MG TAB PO SCH (10:15)
[2023-07-25] MEDS: Hyoscyamine SL 0.125 MG TAB SL PRN (10:45)
[2023-07-25] MEDS: Acetaminophen 325 MG TAB PO PRN ×2 (10:45→20:36)
[2023-07-25] MEDS: Promethazine HCl 12.5 MG in Sodium Chloride 0.9% 50 ML IVPB SCH ×2 (11:40→17:15)
[2023-07-25] MEDS ORDERED: Nortriptyline 10 MG CAP PO SCH (14:15)
[2023-07-25] MEDS: Baclofen 10 MG TAB PO SCH (20:12)
[2023-07-25] MEDS: Ondansetron PF 4 MG/2 ML Vial IVP PRN (20:29)
[2023-07-26] MEDS: Promethazine HCl 12.5 MG in Sodium Chloride 0.9% 50 ML IVPB SCH ×4 (00:12→18:00)
[2023-07-26] MEDS: Piperacillin/Tazobactam 3.375 GM in Sodium Chloride 0.9% 100 ML IVPB SCH ×4 (00:44→23:46)
[2023-07-26] MEDS: D5 1/2 NS w/10 mEq KCl 1,000 ML/1,000 ML BAG IV SCH ×2 (02:33→18:14)
[2023-07-26 04:11] LABS: #Basophils 0.1 thou/uL (0.0-0.2); #Eosinphils 0.2 thou/uL (0.0-0.7); #Monocytes 0.5 thou/uL (0.11-0.59); #Neutrophils 3.6 thou/uL (1.40-6.50); %Basophils 1.2 % (0.0-1.0); %Lymphocytes 23.3 % (21.0-51.0); %Monocytes 8.3 % (0.0-10.0); %Neutrophils 62.2 % (42.0-75.0); Hematocrit 35.3 % (42.0-52.0); Hemoglobin 11.5 g/dL (14.0-18.0); Mean Corpuscular HGB CONC 32.6 g/dL (32.0-36.0); Mean Corpuscular Hemoglobin 30.4 pg (27.0-31.0); Mean Corpuscular Volume 93.4 fl (78.0-98.0); Mean Platelet Volume 9.2 fL (7.4-10.4); Platelet Count 239 10x3/uL (130-400); RBC Distribution Width 12.8 % (11.5-14.5); Red Blood Cell (RBC) Count 3.78 mill/uL (4.70-6.10); White Blood Cell (WBC) Count 5.8 10x3/uL (4.8-10.8)
[2023-07-26 04:39] LABS: Anion Gap 14 mmol/L (10-20); BUN (Urea Nitrogen) Less than 4 mg/dL (8.9-20.6); Calc. Creatinine Clearance 160 mL/min (70-130); Calcium 8.4 mg/dL (7.8-10.44); Carbon Dioxide 19 mmol/L (22-29); Chloride 108 mmol/L (98-107); Estimated GFR 116; Glucose 112 mg/dL (70-105); Potassium 3.3 mmol/L (3.5-5.1); Sodium 138 mmol/L (136-145)
[2023-07-26] MEDS: Baclofen 10 MG TAB PO PRN ×4 (04:56→22:44)
[2023-07-26] MEDS: Acetaminophen 325 MG TAB PO PRN ×4 (05:12→21:30)
[2023-07-26] MEDS: Hyoscyamine SL 0.125 MG TAB SL PRN ×3 (05:13→21:31)
[2023-07-26] MEDS: Ondansetron PF 4 MG/2 ML Vial IVP PRN (05:59)
[2023-07-26] MEDS: Polyethylene Glycol 3350 17 GM Packet PO SCH (08:36)
[2023-07-26] MEDS: Magnesium Oxide 400 MG TAB PO SCH (08:36)
[2023-07-26] MEDS: Bisacodyl 10 MG SUPP PR SCH ×2 (08:36→18:48)
[2023-07-26] MEDS: Mirabegron ER 25 MG ER.TAB PO SCH (08:36)
[2023-07-26] MEDS: Metoprolol Tartrate 25 MG TAB PO SCH ×2 (08:42→20:06)
[2023-07-26] MEDS ORDERED: Potassium Chloride 20 MEQ TAB PO SCH (09:15)
[2023-07-26] MEDS: Oxybutynin 5 MG TAB PO SCH ×3 (09:21→20:08)
[2023-07-26] MEDS: Nitroglycerin 2% Ointment 1 INCH/1 GM Packet TOP PRN (10:12)
[2023-07-26] MEDS: Baclofen 10 MG TAB PO SCH (20:05)
[2023-07-26] MEDS: Nortriptyline 10 MG CAP PO SCH (20:09)
[2023-07-26] MEDS: fentaNYL 50 mcg/mL 1 mL Vial SLOW IVP PRN ×2 (21:36→23:05)
[2023-07-27] MEDS: Promethazine HCl 12.5 MG in Sodium Chloride 0.9% 50 ML IVPB SCH ×5 (00:16→23:53)
[2023-07-27 04:12] LABS: #Basophils 0.1 thou/uL (0.0-0.2); #Eosinphils 0.3 thou/uL (0.0-0.7); #Monocytes 0.6 thou/uL (0.11-0.59); %Basophils 1.2 % (0.0-1.0); %Eosinophils 5.1 % (0.0-10.0); %Lymphocytes 23.3 % (21.0-51.0); %Monocytes 9.3 % (0.0-10.0); %Neutrophils 60.5 % (42.0-75.0); Hematocrit 35.6 % (42.0-52.0); Mean Corpuscular HGB CONC 33.7 g/dL (32.0-36.0); Mean Corpuscular Hemoglobin 31.3 pg (27.0-31.0); Mean Platelet Volume 9.1 fL (7.4-10.4); Platelet Count 244 10x3/uL (130-400); RBC Distribution Width 12.8 % (11.5-14.5); Red Blood Cell (RBC) Count 3.83 mill/uL (4.70-6.10); White Blood Cell (WBC) Count 6.6 10x3/uL (4.8-10.8)
[2023-07-27 04:54] LABS: Anion Gap 11 mmol/L (10-20); BUN (Urea Nitrogen) Less than 4 mg/dL (8.9-20.6); Calc. Creatinine Clearance 194 mL/min (70-130); Calcium 8.7 mg/dL (7.8-10.44); Carbon Dioxide 24 mmol/L (22-29); Chloride 106 mmol/L (98-107); Estimated GFR 124; Glucose 94 mg/dL (70-105); Potassium 3.1 mmol/L (3.5-5.1); Sodium 138 mmol/L (136-145)
[2023-07-27] MEDS ORDERED: Potassium Chloride 20 MEQ TAB PO SCH (06:15)
[2023-07-27] MEDS: Magnesium Oxide 400 MG TAB PO SCH (08:35)
[2023-07-27] MEDS: Metoprolol Tartrate 25 MG TAB PO SCH ×2 (08:35→21:08)
[2023-07-27] MEDS: Oxybutynin 5 MG TAB PO SCH ×3 (08:35→20:53)
[2023-07-27] MEDS: Mirabegron ER 25 MG ER.TAB PO SCH (08:35)
[2023-07-27] MEDS: Piperacillin/Tazobactam 3.375 GM in Sodium Chloride 0.9% 100 ML IVPB SCH ×3 (08:36→23:53)
[2023-07-27] MEDS: Bisacodyl 10 MG SUPP PR SCH (08:36)
[2023-07-27] MEDS: D5 1/2 NS w/10 mEq KCl 1,000 ML/1,000 ML BAG IV SCH ×3 (08:36→22:01)
[2023-07-27] MEDS: Polyethylene Glycol 3350 17 GM Packet PO SCH (08:37)
[2023-07-27] MEDS: Baclofen 10 MG TAB PO PRN ×2 (11:39→16:52)
[2023-07-27] MEDS: fentaNYL 50 mcg/mL 1 mL Vial SLOW IVP PRN (11:48)
[2023-07-27] MEDS: Acetaminophen 325 MG TAB PO PRN ×2 (12:45→22:49)
[2023-07-27] MEDS ORDERED: Morphine 4 MG/ML VIAL SLOW IVP SCH (13:15)
[2023-07-27] MEDS: Baclofen 10 MG TAB PO SCH (20:54)
[2023-07-27] MEDS: Nortriptyline 10 MG CAP PO SCH (20:54)
[2023-07-28] MEDS: Promethazine HCl 12.5 MG in Sodium Chloride 0.9% 50 ML IVPB SCH ×3 (06:23→19:44)
[2023-07-28] MEDS: fentaNYL 50 mcg/mL 1 mL Vial SLOW IVP PRN ×2 (08:15→23:31)
[2023-07-28] MEDS: Piperacillin/Tazobactam 3.375 GM in Sodium Chloride 0.9% 100 ML IVPB SCH ×2 (08:27→16:10)
[2023-07-28] MEDS: Baclofen 10 MG TAB PO PRN (08:28)
[2023-07-28] MEDS: Mirabegron ER 25 MG ER.TAB PO SCH (08:29)
[2023-07-28] MEDS: Metoprolol Tartrate 25 MG TAB PO SCH ×2 (08:30→21:07)
[2023-07-28] MEDS: Oxybutynin 5 MG TAB PO SCH ×3 (08:30→21:07)
[2023-07-28] MEDS: Magnesium Oxide 400 MG TAB PO SCH (08:30)
[2023-07-28] MEDS: Bisacodyl 10 MG SUPP PR SCH (09:05)
[2023-07-28] MEDS: Hyoscyamine SL 0.125 MG TAB SL PRN ×2 (09:06→23:07)
[2023-07-28] MEDS: Polyethylene Glycol 3350 17 GM Packet PO SCH (09:06)
[2023-07-28] MEDS ORDERED: Morphine 4 MG/ML VIAL ONE (09:28)
[2023-07-28] MEDS: Ondansetron PF 4 MG/2 ML Vial IVP PRN ×2 (09:45→14:32)
[2023-07-28] MEDS ORDERED: Morphine 4 MG/ML VIAL SLOW IVP SCH (09:45)
[2023-07-28] MEDS ORDERED: Electrolyte Replacement Protocol 1 EACH FS SCH (10:08)
[2023-07-28] MEDS ORDERED: Potassium Chloride 20 MEQ TAB PO SCH (10:15)
[2023-07-28 10:32] LABS: Anion Gap 21 mmol/L (10-20); BUN (Urea Nitrogen) Less than 4 mg/dL (8.9-20.6); Calc. Creatinine Clearance 157 mL/min (70-130); Calcium 9.4 mg/dL (7.8-10.44); Carbon Dioxide 17 mmol/L (22-29); Chloride 105 mmol/L (98-107); Estimated GFR 116; Glucose 122 mg/dL (70-105); Potassium 5.1 mmol/L (3.5-5.1); Sodium 138 mmol/L (136-145)
[2023-07-28] MEDS: D5 1/2 NS w/10 mEq KCl 1,000 ML/1,000 ML BAG IV SCH (10:59)
[2023-07-28 11:53] LABS: #Basophils 0.1 thou/uL (0.0-0.2); #Eosinphils 0.2 thou/uL (0.0-0.7); #Monocytes 0.8 thou/uL (0.11-0.59); #Neutrophils 10.8 thou/uL (1.40-6.50); %Basophils 0.5 % (0.0-1.0); %Eosinophils 1.3 % (0.0-10.0); %Lymphocytes 5.7 % (21.0-51.0); %Monocytes 6.1 % (0.0-10.0); %Neutrophils 85.9 % (42.0-75.0); Hematocrit 37.3 % (42.0-52.0); Hemoglobin 12.6 g/dL (14.0-18.0); Mean Corpuscular HGB CONC 33.8 g/dL (32.0-36.0); Mean Corpuscular Hemoglobin 31.3 pg (27.0-31.0); Mean Corpuscular Volume 92.6 fl (78.0-98.0); Mean Platelet Volume 9.5 fL (7.4-10.4); Platelet Count 270 10x3/uL (130-400); RBC Distribution Width 12.9 % (11.5-14.5); Red Blood Cell (RBC) Count 4.03 mill/uL (4.70-6.10); White Blood Cell (WBC) Count 12.5 10x3/uL (4.8-10.8)
[2023-07-28] MEDS: Baclofen 10 MG TAB PO SCH ×2 (14:32→21:05)
[2023-07-28] MEDS: Nortriptyline 10 MG CAP PO SCH (21:05)
[2023-07-29] MEDS: Baclofen 10 MG TAB PO SCH ×5 (00:31→20:03)
[2023-07-29] MEDS: fentaNYL 50 mcg/mL 1 mL Vial SLOW IVP PRN ×5 (00:36→22:22)
[2023-07-29] MEDS: Piperacillin/Tazobactam 3.375 GM in Sodium Chloride 0.9% 100 ML IVPB SCH ×3 (00:53→15:03)
[2023-07-29] MEDS: Nitroglycerin 2% Ointment 1 INCH/1 GM Packet TOP PRN ×2 (01:50→18:26)
[2023-07-29] MEDS: Promethazine HCl 12.5 MG in Sodium Chloride 0.9% 50 ML IVPB SCH ×5 (01:58→23:56)
[2023-07-29] MEDS ORDERED: Morphine 2 MG/ML VIAL SLOW IVP SCH (02:00)
[2023-07-29 03:39] LABS: #Basophils 0.1 thou/uL (0.0-0.2); #Eosinphils 0.2 thou/uL (0.0-0.7); #Monocytes 0.8 thou/uL (0.11-0.59); #Neutrophils 8.3 thou/uL (1.40-6.50); %Basophils 0.7 % (0.0-1.0); %Eosinophils 1.6 % (0.0-10.0); %Lymphocytes 12.7 % (21.0-51.0); %Monocytes 7.7 % (0.0-10.0); %Neutrophils 76.9 % (42.0-75.0); Hematocrit 39.9 % (42.0-52.0); Mean Corpuscular HGB CONC 32.6 g/dL (32.0-36.0); Mean Corpuscular Hemoglobin 31.1 pg (27.0-31.0); Mean Platelet Volume 9.5 fL (7.4-10.4); Platelet Count 257 10x3/uL (130-400); Red Blood Cell (RBC) Count 4.18 mill/uL (4.70-6.10); White Blood Cell (WBC) Count 10.7 10x3/uL (4.8-10.8)
[2023-07-29 03:45] LABS: Mean Corpuscular Volume 95.5 fl (78.0-98.0)
[2023-07-29 04:07] LABS: Anion Gap 15 mmol/L (10-20); BUN (Urea Nitrogen) 4 mg/dL (8.9-20.6); Calc. Creatinine Clearance 185 mL/min (70-130); Calcium 9.4 mg/dL (7.8-10.44); Carbon Dioxide 23 mmol/L (22-29); Chloride 103 mmol/L (98-107); Estimated GFR 122; Glucose 75 mg/dL (70-105); Potassium 3.6 mmol/L (3.5-5.1); Sodium 137 mmol/L (136-145)
[2023-07-29] MEDS: Ondansetron PF 4 MG/2 ML Vial IVP PRN (08:40)
[2023-07-29] MEDS: Metoprolol Tartrate 25 MG TAB PO SCH ×2 (08:42→20:03)
[2023-07-29] MEDS: Mirabegron ER 25 MG ER.TAB PO SCH (08:42)
[2023-07-29] MEDS: Acetaminophen 325 MG TAB PO PRN ×3 (08:42→18:42)
[2023-07-29] MEDS: Oxybutynin 5 MG TAB PO SCH ×3 (08:43→20:04)
[2023-07-29] MEDS: Magnesium Oxide 400 MG TAB PO SCH (08:43)
[2023-07-29] MEDS: Bisacodyl 10 MG SUPP PR SCH (11:20)
[2023-07-29] MEDS: Polyethylene Glycol 3350 17 GM Packet PO SCH (11:20)
[2023-07-29] MEDS: Hyoscyamine SL 0.125 MG TAB SL PRN ×2 (15:03→21:52)
[2023-07-29] MEDS ORDERED: Morphine 2 MG/ML VIAL SLOW IVP PRN (16:03)
[2023-07-29] MEDS: Nitroglycerin 4.9 GM Bottle SL PRN ×3 (17:49→18:02)
[2023-07-29] MEDS: Nortriptyline 10 MG CAP PO SCH (20:03)
[2023-07-30] MEDS: Piperacillin/Tazobactam 3.375 GM in Sodium Chloride 0.9% 100 ML IVPB SCH ×2 (00:24→08:24)
[2023-07-30] MEDS: fentaNYL 50 mcg/mL 1 mL Vial SLOW IVP PRN ×4 (00:25→21:51)
[2023-07-30] MEDS: Hyoscyamine SL 0.125 MG TAB SL PRN ×3 (05:51→21:36)
[2023-07-30] MEDS: Acetaminophen 325 MG TAB PO PRN ×2 (05:58→09:13)
[2023-07-30] MEDS: Ondansetron PF 4 MG/2 ML Vial IVP PRN (06:14)
[2023-07-30] MEDS: Promethazine HCl 12.5 MG in Sodium Chloride 0.9% 50 ML IVPB SCH ×3 (06:26→18:47)
[2023-07-30 07:49] LABS: #Basophils 0.1 thou/uL (0.0-0.2); #Eosinphils 0.2 thou/uL (0.0-0.7); #Monocytes 0.6 thou/uL (0.11-0.59); #Neutrophils 7.6 thou/uL (1.40-6.50); %Basophils 0.6 % (0.0-1.0); %Eosinophils 1.8 % (0.0-10.0); %Lymphocytes 9.4 % (21.0-51.0); %Monocytes 6.9 % (0.0-10.0); %Neutrophils 80.9 % (42.0-75.0); Hematocrit 38.3 % (42.0-52.0); Hemoglobin 12.6 g/dL (14.0-18.0); Mean Corpuscular HGB CONC 32.9 g/dL (32.0-36.0); Mean Corpuscular Volume 94.3 fl (78.0-98.0); Mean Platelet Volume 9.3 fL (7.4-10.4); Platelet Count 222 10x3/uL (130-400); Red Blood Cell (RBC) Count 4.06 mill/uL (4.70-6.10); White Blood Cell (WBC) Count 9.3 10x3/uL (4.8-10.8)
[2023-07-30 08:12] LABS: Anion Gap 17 mmol/L (10-20); BUN (Urea Nitrogen) 5 mg/dL (8.9-20.6); Calc. Creatinine Clearance 204 mL/min (70-130); Calcium 8.6 mg/dL (7.8-10.44); Carbon Dioxide 22 mmol/L (22-29); Chloride 102 mmol/L (98-107); Estimated GFR 124; Glucose 73 mg/dL (70-105); Sodium 138 mmol/L (136-145)
[2023-07-30] MEDS: Metoprolol Tartrate 25 MG TAB PO SCH ×2 (08:51→21:37)
[2023-07-30] MEDS: Magnesium Oxide 400 MG TAB PO SCH (08:51)
[2023-07-30] MEDS: Bisacodyl 10 MG SUPP PR SCH (08:51)
[2023-07-30] MEDS: Baclofen 10 MG TAB PO SCH ×4 (08:51→19:39)
[2023-07-30] MEDS: Polyethylene Glycol 3350 17 GM Packet PO SCH (08:51)
[2023-07-30] MEDS: Mirabegron ER 25 MG ER.TAB PO SCH (08:51)
[2023-07-30] MEDS: Oxybutynin 5 MG TAB PO SCH ×3 (10:35→19:39)
[2023-07-30] MEDS ORDERED: Potassium Chloride 20 MEQ TAB PO SCH (11:15)
[2023-07-30] MEDS: Digoxin 0.05 MG/ML Oral Solution PO SCH (11:28)
[2023-07-30] MEDS: Acetaminophen/Codeine 30-300mg Tablet PO SCH ×2 (13:38→19:36)
[2023-07-30] MEDS: Nortriptyline 10 MG CAP PO SCH (19:39)
[2023-07-31] MEDS: Promethazine HCl 12.5 MG in Sodium Chloride 0.9% 50 ML IVPB SCH ×3 (00:01→13:22)
[2023-07-31] MEDS: Acetaminophen 325 MG TAB PO PRN (00:06)
[2023-07-31] MEDS: Acetaminophen/Codeine 30-300mg Tablet PO SCH ×4 (03:20→21:18)
[2023-07-31 04:07] LABS: #Basophils 0.1 thou/uL (0.0-0.2); #Eosinphils 0.2 thou/uL (0.0-0.7); #Monocytes 0.7 thou/uL (0.11-0.59); #Neutrophils 5.2 thou/uL (1.40-6.50); %Eosinophils 2.7 % (0.0-10.0); %Lymphocytes 20.6 % (21.0-51.0); %Monocytes 9.4 % (0.0-10.0); %Neutrophils 65.8 % (42.0-75.0); Hematocrit 37.9 % (42.0-52.0); Hemoglobin 12.9 g/dL (14.0-18.0); Mean Corpuscular Hemoglobin 31.5 pg (27.0-31.0); Mean Corpuscular Volume 92.4 fl (78.0-98.0); Mean Platelet Volume 9.5 fL (7.4-10.4); Platelet Count 239 10x3/uL (130-400); RBC Distribution Width 12.9 % (11.5-14.5); White Blood Cell (WBC) Count 7.9 10x3/uL (4.8-10.8)
[2023-07-31 04:28] LABS: Anion Gap 15 mmol/L (10-20); BUN (Urea Nitrogen) 5 mg/dL (8.9-20.6); Calc. Creatinine Clearance 208 mL/min (70-130); Calcium 8.9 mg/dL (7.8-10.44); Carbon Dioxide 22 mmol/L (22-29); Chloride 105 mmol/L (98-107); Estimated GFR 125; Glucose 81 mg/dL (70-105); Potassium 3.6 mmol/L (3.5-5.1); Sodium 138 mmol/L (136-145)
[2023-07-31] MEDS: fentaNYL 50 mcg/mL 1 mL Vial SLOW IVP PRN ×4 (05:07→16:54)
[2023-07-31] MEDS: Hyoscyamine SL 0.125 MG TAB SL PRN (06:01)
[2023-07-31] MEDS: Polyethylene Glycol 3350 17 GM Packet PO SCH (09:07)
[2023-07-31] MEDS: Mirabegron ER 25 MG ER.TAB PO SCH (09:07)
[2023-07-31] MEDS: Magnesium Oxide 400 MG TAB PO SCH (09:08)
[2023-07-31] MEDS: Metoprolol Tartrate 25 MG TAB PO SCH ×2 (09:08→21:19)
[2023-07-31] MEDS: Baclofen 10 MG TAB PO SCH ×4 (09:08→21:19)
[2023-07-31] MEDS: Bisacodyl 10 MG SUPP PR SCH (09:55)
[2023-07-31] MEDS: Oxybutynin 5 MG TAB PO SCH ×3 (09:57→21:19)
[2023-07-31] MEDS: Digoxin 0.05 MG/ML Oral Solution PO SCH (11:29)
[2023-07-31] MEDS ORDERED: Zinc Oxide 20% Oint 30 GM TUBE TOP PRN (11:46)
[2023-07-31] MEDS ORDERED: Promethazine HCl 12.5 MG in Sodium Chloride 0.9% 50 ML IVPB PRN (12:16)
[2023-07-31] MEDS: Simethicone Chewable 80 MG TAB PO PRN ×2 (13:35→21:31)
[2023-07-31] MEDS: Phenazopyridine HCl 100 MG TAB PO SCH ×2 (15:02→21:18)
[2023-07-31] MEDS ORDERED: Morphine 2 MG/ML VIAL SLOW IVP SCH (18:00)
[2023-07-31] MEDS: Nortriptyline 10 MG CAP PO SCH (21:18)
[2023-07-31] MEDS: Ondansetron PF 4 MG/2 ML Vial IVP PRN (21:24)
[2023-08-01] MEDS: Acetaminophen/Codeine 30-300mg Tablet PO SCH ×4 (02:51→21:17)
[2023-08-01 04:23] LABS: #Basophils 0.1 thou/uL (0.0-0.2); #Eosinphils 0.2 thou/uL (0.0-0.7); #Monocytes 0.8 thou/uL (0.11-0.59); #Neutrophils 6.1 thou/uL (1.40-6.50); %Basophils 0.7 % (0.0-1.0); %Eosinophils 2.1 % (0.0-10.0); %Lymphocytes 16.8 % (21.0-51.0); %Neutrophils 70.8 % (42.0-75.0); Hematocrit 36.6 % (42.0-52.0); Mean Corpuscular HGB CONC 32.8 g/dL (32.0-36.0); Mean Corpuscular Hemoglobin 30.8 pg (27.0-31.0); Mean Corpuscular Volume 93.8 fl (78.0-98.0); Mean Platelet Volume 9.5 fL (7.4-10.4); Platelet Count 227 10x3/uL (130-400); RBC Distribution Width 12.9 % (11.5-14.5); White Blood Cell (WBC) Count 8.6 10x3/uL (4.8-10.8)
[2023-08-01 04:51] LABS: Anion Gap 16 mmol/L (10-20); BUN (Urea Nitrogen) Less than 4 mg/dL (8.9-20.6); Calc. Creatinine Clearance 101 mL/min (70-130); Calcium 8.6 mg/dL (7.8-10.44); Carbon Dioxide 21 mmol/L (22-29); Chloride 100 mmol/L (98-107); Estimated GFR 128; Glucose 72 mg/dL (70-105); Sodium 134 mmol/L (136-145)
[2023-08-01] MEDS ORDERED: Potassium Chloride 20 MEQ TAB PO SCH (08:00)
[2023-08-01] MEDS: Polyethylene Glycol 3350 17 GM Packet PO SCH (08:27)
[2023-08-01] MEDS: Mirabegron ER 25 MG ER.TAB PO SCH (08:27)
[2023-08-01] MEDS: Metoprolol Tartrate 25 MG TAB PO SCH ×2 (08:28→21:17)
[2023-08-01] MEDS: Baclofen 10 MG TAB PO SCH ×4 (08:28→21:17)
[2023-08-01] MEDS: Bisacodyl 10 MG SUPP PR SCH (08:28)
[2023-08-01] MEDS: Phenazopyridine HCl 100 MG TAB PO SCH ×3 (08:31→21:17)
[2023-08-01] MEDS: Magnesium Oxide 400 MG TAB PO SCH (08:31)
[2023-08-01] MEDS: Oxybutynin 5 MG TAB PO SCH ×3 (09:20→21:17)
[2023-08-01] MEDS: Ondansetron ODT 4 MG TAB PO PRN (10:42)
[2023-08-01] MEDS: fentaNYL 50 mcg/mL 1 mL Vial SLOW IVP PRN (10:42)
[2023-08-01] MEDS: Simethicone Chewable 80 MG TAB PO PRN ×2 (11:03→21:23)
[2023-08-01] MEDS: Digoxin 0.05 MG/ML Oral Solution PO SCH (11:04)
[2023-08-01] MEDS: Sodium Chloride 0.65% Nasal 44 ML BOT EA NARE PRN ×2 (14:57→21:21)
[2023-08-01] MEDS: Nortriptyline 10 MG CAP PO SCH (21:17)
[2023-08-02] MEDS: Ondansetron PF 4 MG/2 ML Vial IVP PRN (00:02)
[2023-08-02] MEDS: Acetaminophen/Codeine 30-300mg Tablet PO SCH ×4 (03:35→18:11)
[2023-08-02 05:44] LABS: #Basophils 0.1 thou/uL (0.0-0.2); #Eosinphils 0.1 thou/uL (0.0-0.7); #Monocytes 0.8 thou/uL (0.11-0.59); %Basophils 0.7 % (0.0-1.0); %Eosinophils 1.2 % (0.0-10.0); %Lymphocytes 13.1 % (21.0-51.0); %Monocytes 8.6 % (0.0-10.0); %Neutrophils 76.1 % (42.0-75.0); Hematocrit 35.7 % (42.0-52.0); Hemoglobin 11.7 g/dL (14.0-18.0); Mean Corpuscular HGB CONC 32.8 g/dL (32.0-36.0); Mean Corpuscular Hemoglobin 30.5 pg (27.0-31.0); Mean Platelet Volume 9.3 fL (7.4-10.4); Platelet Count 242 10x3/uL (130-400); RBC Distribution Width 12.8 % (11.5-14.5); Red Blood Cell (RBC) Count 3.84 mill/uL (4.70-6.10); White Blood Cell (WBC) Count 9.2 10x3/uL (4.8-10.8)
[2023-08-02 06:16] LABS: Anion Gap 16 mmol/L (10-20); BUN (Urea Nitrogen) Less than 4 mg/dL (8.9-20.6); Calc. Creatinine Clearance 95 mL/min (70-130); Calcium 8.6 mg/dL (7.8-10.44); Carbon Dioxide 20 mmol/L (22-29); Chloride 101 mmol/L (98-107); Estimated GFR 126; Glucose 74 mg/dL (70-105); Potassium 3.7 mmol/L (3.5-5.1); Sodium 133 mmol/L (136-145)
[2023-08-02] MEDS: Baclofen 10 MG TAB PO SCH ×4 (06:39→20:53)
[2023-08-02] MEDS: Polyethylene Glycol 3350 17 GM Packet PO SCH (07:22)
[2023-08-02] MEDS: Bisacodyl 10 MG SUPP PR SCH (07:23)
[2023-08-02] MEDS: Hyoscyamine SL 0.125 MG TAB SL PRN ×2 (07:59→18:11)
[2023-08-02] MEDS: fentaNYL 50 mcg/mL 1 mL Vial SLOW IVP PRN (08:19)
[2023-08-02] MEDS: Mirabegron ER 25 MG ER.TAB PO SCH (09:07)
[2023-08-02] MEDS: Oxybutynin 5 MG TAB PO SCH ×3 (09:08→20:53)
[2023-08-02] MEDS: Magnesium Oxide 400 MG TAB PO SCH (09:08)
[2023-08-02] MEDS: Metoprolol Tartrate 25 MG TAB PO SCH ×2 (09:08→20:53)
[2023-08-02] MEDS: Phenazopyridine HCl 100 MG TAB PO SCH ×3 (09:08→20:53)
[2023-08-02] MEDS: Digoxin 0.05 MG/ML Oral Solution PO SCH (11:07)
[2023-08-02] MEDS: Nortriptyline 10 MG CAP PO SCH (20:54)
[2023-08-03] MEDS: Acetaminophen/Codeine 30-300mg Tablet PO SCH ×5 (02:54→21:46)
[2023-08-03] MEDS: Hyoscyamine SL 0.125 MG TAB SL PRN (03:21)
[2023-08-03] MEDS: Ondansetron PF 4 MG/2 ML Vial IVP PRN ×2 (03:24→08:57)
[2023-08-03 04:58] LABS: #Basophils 0.1 thou/uL (0.0-0.2); #Eosinphils 0.1 thou/uL (0.0-0.7); #Monocytes 0.7 thou/uL (0.11-0.59); #Neutrophils 4.8 thou/uL (1.40-6.50); %Basophils 0.9 % (0.0-1.0); %Eosinophils 1.4 % (0.0-10.0); %Monocytes 10.1 % (0.0-10.0); %Neutrophils 73.8 % (42.0-75.0); Hematocrit 36.6 % (42.0-52.0); Mean Corpuscular HGB CONC 32.8 g/dL (32.0-36.0); Mean Corpuscular Hemoglobin 30.7 pg (27.0-31.0); Mean Corpuscular Volume 93.6 fl (78.0-98.0); Mean Platelet Volume 9.3 fL (7.4-10.4); Platelet Count 254 10x3/uL (130-400); RBC Distribution Width 12.9 % (11.5-14.5); Red Blood Cell (RBC) Count 3.91 mill/uL (4.70-6.10); White Blood Cell (WBC) Count 6.4 10x3/uL (4.8-10.8)
[2023-08-03 05:32] LABS: Anion Gap 17 mmol/L (10-20); BUN (Urea Nitrogen) Less than 4 mg/dL (8.9-20.6); Calc. Creatinine Clearance 183 mL/min (70-130); Calcium 8.4 mg/dL (7.8-10.44); Carbon Dioxide 19 mmol/L (22-29); Chloride 100 mmol/L (98-107); Estimated GFR 121; Glucose 74 mg/dL (70-105); Potassium 3.6 mmol/L (3.5-5.1); Sodium 132 mmol/L (136-145)
[2023-08-03] MEDS: Mirabegron ER 25 MG ER.TAB PO SCH (08:58)
[2023-08-03] MEDS: Metoprolol Tartrate 25 MG TAB PO SCH ×2 (08:58→21:45)
[2023-08-03] MEDS: Phenazopyridine HCl 100 MG TAB PO SCH ×3 (08:58→21:45)
[2023-08-03] MEDS: Oxybutynin 5 MG TAB PO SCH ×3 (08:58→21:46)
[2023-08-03] MEDS: Magnesium Oxide 400 MG TAB PO SCH (08:58)
[2023-08-03] MEDS: Baclofen 10 MG TAB PO SCH ×4 (08:58→21:45)
[2023-08-03] MEDS: Bisacodyl 10 MG SUPP PR SCH (08:59)
[2023-08-03] MEDS: Polyethylene Glycol 3350 17 GM Packet PO SCH (08:59)
[2023-08-03] MEDS: Simethicone Chewable 80 MG TAB PO PRN ×2 (12:04→21:48)
[2023-08-03] MEDS: Digoxin 0.05 MG/ML Oral Solution PO SCH (12:04)
[2023-08-03] MEDS: Nortriptyline 10 MG CAP PO SCH (21:45)
[2023-08-04] MEDS: Hyoscyamine SL 0.125 MG TAB SL PRN (03:41)
[2023-08-04] MEDS: Acetaminophen/Codeine 30-300mg Tablet PO SCH ×4 (03:44→21:49)
[2023-08-04 05:15] LABS: #Basophils 0.1 thou/uL (0.0-0.2); #Eosinphils 0.1 thou/uL (0.0-0.7); #Monocytes 0.8 thou/uL (0.11-0.59); #Neutrophils 5.2 thou/uL (1.40-6.50); %Basophils 0.8 % (0.0-1.0); %Lymphocytes 12.5 % (21.0-51.0); %Monocytes 11.2 % (0.0-10.0); %Neutrophils 72.9 % (42.0-75.0); Hematocrit 36.3 % (42.0-52.0); Hemoglobin 12.2 g/dL (14.0-18.0); Mean Corpuscular HGB CONC 33.6 g/dL (32.0-36.0); Mean Corpuscular Volume 92.4 fl (78.0-98.0); Mean Platelet Volume 9.3 fL (7.4-10.4); Platelet Count 260 10x3/uL (130-400); RBC Distribution Width 12.6 % (11.5-14.5); Red Blood Cell (RBC) Count 3.93 mill/uL (4.70-6.10); White Blood Cell (WBC) Count 7.1 10x3/uL (4.8-10.8)
[2023-08-04 05:37] LABS: Anion Gap 17 mmol/L (10-20); BUN (Urea Nitrogen) Less than 4 mg/dL (8.9-20.6); Calc. Creatinine Clearance 200 mL/min (70-130); Calcium 9.1 mg/dL (7.8-10.44); Carbon Dioxide 23 mmol/L (22-29); Chloride 98 mmol/L (98-107); Estimated GFR 124; Glucose 83 mg/dL (70-105); Potassium 3.5 mmol/L (3.5-5.1); Sodium 134 mmol/L (136-145)
[2023-08-04] MEDS ORDERED: Electrolyte Replacement Protocol FS PRN (08:00)
[2023-08-04] MEDS ORDERED: Potassium Chloride 20 MEQ TAB PO SCH (08:00)
[2023-08-04] MEDS: Magnesium Oxide 400 MG TAB PO SCH (08:38)
[2023-08-04] MEDS: Mirabegron ER 25 MG ER.TAB PO SCH (08:38)
[2023-08-04] MEDS: Polyethylene Glycol 3350 17 GM Packet PO SCH (08:38)
[2023-08-04] MEDS: Oxybutynin 5 MG TAB PO SCH ×3 (08:39→21:49)
[2023-08-04] MEDS: Baclofen 10 MG TAB PO SCH ×4 (08:39→21:49)
[2023-08-04] MEDS: Bisacodyl 10 MG SUPP PR SCH (08:39)
[2023-08-04] MEDS: Phenazopyridine HCl 100 MG TAB PO SCH ×3 (08:39→21:49)
[2023-08-04] MEDS: Metoprolol Tartrate 25 MG TAB PO SCH ×2 (08:39→21:51)
[2023-08-04 14:55] LABS: Potassium 3.5 mmol/L (3.5-5.1)
[2023-08-04] MEDS: Digoxin 0.05 MG/ML Oral Solution PO SCH (15:17)
[2023-08-04] MEDS: Nortriptyline 10 MG CAP PO SCH (21:49)
[2023-08-05] MEDS: Acetaminophen/Codeine 30-300mg Tablet PO SCH ×4 (01:48→20:50)
[2023-08-05 07:58] LABS: #Eosinphils 0.1 thou/uL (0.0-0.7); #Monocytes 0.8 thou/uL (0.11-0.59); #Neutrophils 4.9 thou/uL (1.40-6.50); %Basophils 0.6 % (0.0-1.0); %Eosinophils 1.5 % (0.0-10.0); %Lymphocytes 12.8 % (21.0-51.0); %Monocytes 11.9 % (0.0-10.0); %Neutrophils 72.6 % (42.0-75.0); Hematocrit 39.4 % (42.0-52.0); Hemoglobin 12.7 g/dL (14.0-18.0); Mean Corpuscular HGB CONC 32.2 g/dL (32.0-36.0); Mean Corpuscular Hemoglobin 30.8 pg (27.0-31.0); Mean Corpuscular Volume 95.6 fl (78.0-98.0); Mean Platelet Volume 9.7 fL (7.4-10.4); Platelet Count 267 10x3/uL (130-400); RBC Distribution Width 12.8 % (11.5-14.5); Red Blood Cell (RBC) Count 4.12 mill/uL (4.70-6.10); White Blood Cell (WBC) Count 6.7 10x3/uL (4.8-10.8)
[2023-08-05] MEDS ORDERED: Potassium Chloride 20 MEQ TAB PO SCH (08:00)
[2023-08-05 08:24] LABS: Phosphorus 2.7 mg/dL (2.3-4.7)
[2023-08-05 08:26] LABS: Anion Gap 16 mmol/L (10-20); BUN (Urea Nitrogen) Less than 4 mg/dL (8.9-20.6); Calc. Creatinine Clearance 226 mL/min (70-130); Carbon Dioxide 23 mmol/L (22-29); Chloride 101 mmol/L (98-107); Estimated GFR 129; Glucose 83 mg/dL (70-105); Magnesium 1.9 mg/dL (1.6-2.6); Potassium 3.7 mmol/L (3.5-5.1); Sodium 136 mmol/L (136-145)
[2023-08-05] MEDS: fentaNYL 50 mcg/mL 1 mL Vial SLOW IVP PRN (08:41)
[2023-08-05] MEDS: Hyoscyamine SL 0.125 MG TAB SL PRN (08:50)
[2023-08-05] MEDS: Phenazopyridine HCl 100 MG TAB PO SCH ×3 (08:51→20:49)
[2023-08-05] MEDS: Oxybutynin 5 MG TAB PO SCH ×3 (08:51→20:51)
[2023-08-05] MEDS: Metoprolol Tartrate 25 MG TAB PO SCH ×2 (08:52→20:49)
[2023-08-05] MEDS: Mirabegron ER 25 MG ER.TAB PO SCH (08:52)
[2023-08-05] MEDS: Bisacodyl 10 MG SUPP PR SCH (08:53)
[2023-08-05] MEDS: Magnesium Oxide 400 MG TAB PO SCH (08:53)
[2023-08-05] MEDS: Polyethylene Glycol 3350 17 GM Packet PO SCH (08:54)
[2023-08-05] MEDS: Baclofen 10 MG TAB PO SCH ×4 (08:57→20:50)
[2023-08-05] MEDS ORDERED: Magnesium 2 GM/50 ML(in water) 2 GM in Premix 1 BAG IVPB SCH (09:15)
[2023-08-05] MEDS: Digoxin 0.05 MG/ML Oral Solution PO SCH (11:02)
[2023-08-05] MEDS ORDERED: Ivabradine 5 MG TAB PO SCH (12:15)
[2023-08-05] MEDS ORDERED: Nystatin Powder 15 GM BOT TOP PRN (16:08)
[2023-08-05] MEDS ORDERED: Zinc Oxide 20% Oint 30 GM TUBE TOP PRN (16:11)
[2023-08-05] MEDS: Nortriptyline 10 MG CAP PO SCH (20:52)
[2023-08-05] MEDS: Zinc Oxide 20% Oint 30 GM TUBE TOP SCH (21:07)
[2023-08-05] MEDS: Ivabradine 5 MG TAB PO SCH (21:07)
[2023-08-05] MEDS: Nystatin Powder 15 GM BOT TOP SCH (21:07)
[2023-08-05] MEDS: Simethicone Chewable 80 MG TAB PO PRN (21:14)
[2023-08-06] MEDS: Acetaminophen/Codeine 30-300mg Tablet PO SCH ×4 (01:36→22:04)
[2023-08-06] MEDS: Hyoscyamine SL 0.125 MG TAB SL PRN ×2 (01:36→09:26)
[2023-08-06 04:42] LABS: #Basophils 0.1 thou/uL (0.0-0.2); #Eosinphils 0.1 thou/uL (0.0-0.7); #Monocytes 0.7 thou/uL (0.11-0.59); #Neutrophils 4.5 thou/uL (1.40-6.50); %Basophils 0.8 % (0.0-1.0); %Eosinophils 1.4 % (0.0-10.0); %Lymphocytes 15.6 % (21.0-51.0); %Monocytes 10.3 % (0.0-10.0); %Neutrophils 71.4 % (42.0-75.0); Hematocrit 34.9 % (42.0-52.0); Hemoglobin 11.7 g/dL (14.0-18.0); Mean Corpuscular HGB CONC 33.5 g/dL (32.0-36.0); Mean Corpuscular Hemoglobin 30.6 pg (27.0-31.0); Mean Platelet Volume 9.2 fL (7.4-10.4); Platelet Count 294 10x3/uL (130-400); RBC Distribution Width 12.6 % (11.5-14.5); Red Blood Cell (RBC) Count 3.82 mill/uL (4.70-6.10); White Blood Cell (WBC) Count 6.3 10x3/uL (4.8-10.8)
[2023-08-06 05:16] LABS: Mean Corpuscular Volume 91.4 fl (78.0-98.0)
[2023-08-06 05:18] LABS: Anion Gap 13 mmol/L (10-20); BUN (Urea Nitrogen) Less than 4 mg/dL (8.9-20.6); Calc. Creatinine Clearance 253 mL/min (70-130); Calcium 8.7 mg/dL (7.8-10.44); Carbon Dioxide 29 mmol/L (22-29); Chloride 96 mmol/L (98-107); Estimated GFR 134; Glucose 76 mg/dL (70-105); Magnesium 1.9 mg/dL (1.6-2.6); Potassium 3.5 mmol/L (3.5-5.1); Sodium 134 mmol/L (136-145)
[2023-08-06] MEDS ORDERED: Potassium Bicarbonate/Cit Ac 20 MEQ TAB PO SCH (08:00)
[2023-08-06] MEDS ORDERED: Magnesium 2 GM/50 ML(in water) 2 GM in Premix 1 BAG IVPB SCH (08:00)
[2023-08-06] MEDS: Oxybutynin 5 MG TAB PO SCH ×3 (09:25→22:04)
[2023-08-06] MEDS: Magnesium Oxide 400 MG TAB PO SCH (09:26)
[2023-08-06] MEDS: Baclofen 10 MG TAB PO SCH ×4 (09:26→22:04)
[2023-08-06] MEDS: Mirabegron ER 25 MG ER.TAB PO SCH (09:26)
[2023-08-06] MEDS: Metoprolol Tartrate 25 MG TAB PO SCH ×2 (09:26→22:05)
[2023-08-06] MEDS: Ivabradine 5 MG TAB PO SCH ×2 (09:27→22:04)
[2023-08-06] MEDS: Phenazopyridine HCl 100 MG TAB PO SCH ×3 (09:28→22:04)
[2023-08-06] MEDS: Polyethylene Glycol 3350 17 GM Packet PO SCH (09:30)
[2023-08-06] MEDS: Bisacodyl 10 MG SUPP PR SCH (09:31)
[2023-08-06] MEDS: Zinc Oxide 20% Oint 30 GM TUBE TOP SCH ×2 (09:33→22:05)
[2023-08-06] MEDS: Nystatin Powder 15 GM BOT TOP SCH ×2 (09:34→22:05)
[2023-08-06] MEDS: Digoxin 0.05 MG/ML Oral Solution PO SCH (13:22)
[2023-08-06] MEDS: Nortriptyline 10 MG CAP PO SCH (22:05)
[2023-08-07] MEDS: Hyoscyamine SL 0.125 MG TAB SL PRN (01:01)
[2023-08-07] MEDS: Acetaminophen/Codeine 30-300mg Tablet PO SCH ×3 (01:01→14:12)
[2023-08-07 06:28] LABS: #Basophils 0.1 thou/uL (0.0-0.2); #Eosinphils 0.1 thou/uL (0.0-0.7); #Monocytes 0.6 thou/uL (0.11-0.59); #Neutrophils 3.8 thou/uL (1.40-6.50); %Eosinophils 1.9 % (0.0-10.0); %Lymphocytes 20.7 % (21.0-51.0); %Monocytes 11.1 % (0.0-10.0); %Neutrophils 64.8 % (42.0-75.0); Hemoglobin 11.7 g/dL (14.0-18.0); Mean Corpuscular HGB CONC 31.6 g/dL (32.0-36.0); Mean Corpuscular Hemoglobin 29.8 pg (27.0-31.0); Mean Corpuscular Volume 94.4 fl (78.0-98.0); Mean Platelet Volume 9.1 fL (7.4-10.4); Platelet Count 324 10x3/uL (130-400); RBC Distribution Width 12.7 % (11.5-14.5); Red Blood Cell (RBC) Count 3.92 mill/uL (4.70-6.10); White Blood Cell (WBC) Count 5.8 10x3/uL (4.8-10.8)
[2023-08-07 06:50] LABS: Anion Gap 14 mmol/L (10-20); BUN (Urea Nitrogen) Less than 4 mg/dL (8.9-20.6); Calc. Creatinine Clearance 225 mL/min (70-130); Carbon Dioxide 26 mmol/L (22-29); Chloride 100 mmol/L (98-107); Estimated GFR 129; Glucose 82 mg/dL (70-105); Potassium 3.9 mmol/L (3.5-5.1); Sodium 136 mmol/L (136-145)
[2023-08-07 08:39] VITALS: TEMP 98.3
[2023-08-07] MEDS: Magnesium Oxide 400 MG TAB PO SCH (10:01)
[2023-08-07] MEDS: Baclofen 10 MG TAB PO SCH ×2 (10:02→14:14)
[2023-08-07] MEDS: Ivabradine 5 MG TAB PO SCH (10:02)
[2023-08-07] MEDS: Mirabegron ER 25 MG ER.TAB PO SCH (10:02)
[2023-08-07] MEDS: Phenazopyridine HCl 100 MG TAB PO SCH ×2 (10:02→14:12)
[2023-08-07] MEDS: Metoprolol Tartrate 25 MG TAB PO SCH (10:04)
[2023-08-07] MEDS: Bisacodyl 10 MG SUPP PR SCH (10:05)
[2023-08-07] MEDS: Oxybutynin 5 MG TAB PO SCH ×2 (10:05→14:14)
[2023-08-07] MEDS: Polyethylene Glycol 3350 17 GM Packet PO SCH (10:06)
[2023-08-07] MEDS: Nystatin Powder 15 GM BOT TOP SCH (10:06)
[2023-08-07] MEDS: Zinc Oxide 20% Oint 30 GM TUBE TOP SCH (10:07)
[2023-08-07 11:55] VITALS: BP 105/60
[2023-08-07] MEDS: Digoxin 0.05 MG/ML Oral Solution PO SCH (14:16)
== END 2023-08-07 16:07 | disposition home health service (06) | DRG 698 ==
LOC: ERS 17:06 → IMCU/EMU 20:25 → CCU 07-23 11:40 → IMCU/EMU 07-31 17:20
PROVIDERS: ADMIT Student in an Organized Health Care Education/Training Program; ATTEND Internal Medicine
PROC: 0T9B70Z Drainage of Bladder with Drainage Device, Via Natural or Artificial Opening (ICD-10-PCS; principal; 2023-07-21)
PROC: 3E03329 Introduction of Other Anti-infective into Peripheral Vein, Percutaneous Approach (ICD-10-PCS; 2023-07-21)
PROC: BT1F1ZZ Fluoroscopy of Left Kidney, Ureter and Bladder using Low Osmolar Contrast (ICD-10-PCS; 2023-07-22)
PROC: 0TCB8ZZ Extirpation of Matter from Bladder, Via Natural or Artificial Opening Endoscopic (ICD-10-PCS; 2023-07-22)
DX: T83.511A Infection and inflammatory reaction due to indwelling urethral catheter, initial encounter (principal); A41.9 Sepsis, unspecified organism; G82.50 Quadriplegia, unspecified; R65.20 Severe sepsis without septic shock; N20.2 Calculus of kidney with calculus of ureter; Z79.899 Other long term (current) drug therapy; Z98.890 Other specified postprocedural states; M62.838 Other muscle spasm; G90.4 Autonomic dysreflexia; I48.91 Unspecified atrial fibrillation; N31.9 Neuromuscular dysfunction of bladder, unspecified; I10 Essential (primary) hypertension; N21.0 Calculus in bladder; K59.00 Constipation, unspecified; I49.5 Sick sinus syndrome; Z91.018 Allergy to other foods; N39.0 Urinary tract infection, site not specified
CPT/HCPCS: 36415; 36416; 74018; 74177; 74420; 76705; 80048; 80053; 81001; 83605; 83690; 83735; 84100; 84145; 85025; 87040; 87086; 93005; 93010; 93306; 96361; 96365; 96366; 96368; 96375; 96376; 97139; J0692; J1650; J1885; J2001; J2060; J2270; J2272; J2405; J2543; J2550; J2704; J3010; J3475; J3480; J3490; J7030; Q0162; Q9967; S0028

== ENCOUNTER 2024-06-05 13:34 | Emergency (ER) | payer OTHER, MEDICAID ==
[2024-06-05 14:57] LABS: #Basophils 0.06 10x3/uL (0.0-0.2); #Eosinphils Less than 0.03 10x3/uL (0.0-0.7); %Basophils 1.2 % (0.0-1.0); %Eosinophils 0.4 % (0.0-10.0); %Lymphocytes 13.8 % (21.0-51.0); %Monocytes 13.8 % (0.0-10.0); %Neutrophils 70.4 % (42.0-75.0); Hematocrit 39.3 % (42.0-52.0); Hemoglobin 13.5 g/dL (14.0-18.0); Mean Corpuscular HGB CONC 34.4 g/dL (32.0-36.0); Mean Corpuscular Hemoglobin 31.2 pg (27.0-31.0); Mean Corpuscular Volume 90.8 fL (78.0-98.0); Mean Platelet Volume 9.4 fL (7.4-10.4); Platelet Count 228 10x3/uL (130-400); RBC Distribution Width 12.2 % (11.5-14.5); Red Blood Cell (RBC) Count 4.33 mill/uL (4.70-6.10)
[2024-06-05 15:16] LABS: ALT (SGPT) 21 U/L (8-55); AST (SGOT) 14 U/L (5-34); Albumin 3.8 g/dL (3.5-5.0); Alkaline Phosphatase 72 U/L (40-110); Anion Gap 11 mmol/L (10-20); BUN (Urea Nitrogen) 4 mg/dL (8.9-20.6); Bilirubin, Total 0.7 mg/dL (0.2-1.2); Calc. Creatinine Clearance 0 mL/min (70-130); Calcium 9.7 mg/dL (7.8-10.44); Carbon Dioxide 24 mmol/L (22-29); Chloride 104 mmol/L (98-107); Estimated GFR 121; Globulin 3.4 g/dL (2.4-3.5); Glucose 112 mg/dL (70-105); Potassium 4.1 mmol/L (3.5-5.1); Protein, Total 7.2 g/dL (6.0-8.3); Sodium 135 mmol/L (136-145)
[2024-06-05 18:55] LABS: Bacteria/HPF 2+ HPF (None Seen); Bilirubin Negative (Negative); Blood, Urine Negative (Negative); CAUTI Indications for Culture Alt mental st,lethar; Clarity Turbid (Clear); Glucose, Urine (Dipstick) Normal (Negative); Ketone, Urine 40 mg/dL (Negative); Leukocyte 500 Leu/uL (Negative); Nitrite 1+ (Negative); Protein, Urine (Dipstick) Negative (Neg-Trace); RBC/HPF 0-3 HPF (0-3); Specific Gravity, Urine 1.004 (1.002-1.036); Squamous Epithelial 0-3 HPF (0-3); Urobilinogen Normal mg/dL (Less than 2); WBC/HPF Greater than 50 HPF (0-3); pH, Urine 6.5 (5.0-9.0)
[2024-06-05 18:57] LABS: Urine Culture Reflex Yes Yes
== END 2024-06-05 19:45 | disposition home or self-care (01) ==
LOC: ERS 13:34
DX: N39.0 Urinary tract infection, site not specified (principal)
CPT/HCPCS: 36415; 80053; 81001; 83605; 85025; 87040; 87077; 87086; 87186; 99283

== ENCOUNTER 2024-09-18 09:44 | Day surgery (SDC) | payer OTHER, MEDICAID ==
[2024-09-17 09:51] VITALS: BMI 25.0
[2024-09-18] MEDS ORDERED: PROPOFOL 20 ML ONE (11:12)
[2024-09-18] MEDS ORDERED: Lidocaine 2% PF 5 ML VIAL ONE (11:12)
[2024-09-18] MEDS ORDERED: Meropenem 1 GM in Sodium Chloride 0.9% 100 ML IVPB SCH (11:30)
[2024-09-18] MEDS ORDERED: fentaNYL PF 100 MCG/2 ML SYRINGE ONE (12:12)
[2024-09-18] MEDS ORDERED: Dexamethasone 4 mg/ml Vial ONE (12:35)
[2024-09-18] MEDS ORDERED: Ondansetron PF 4 MG/2 ML Vial ONE (12:35)
[2024-09-18] MEDS ORDERED: ePHEDrine Sulfate 50 MG/10 ML VIAL ONE (12:46)
[2024-09-18] MEDS ORDERED: fentaNYL 50 mcg/mL 1 mL Vial ONE (13:59)
[2024-09-18] MEDS ORDERED: HYDROcodone/Acetaminophen 5/325 mg Tablet ONE (14:58)
== END 2024-09-18 15:29 | disposition home or self-care (01) ==
LOC: SDC 09:44
PROVIDERS: ATTEND Urology
PROC: 0TCB8ZZ Extirpation of Matter from Bladder, Via Natural or Artificial Opening Endoscopic (ICD-10-PCS; principal; 2024-09-18)
DX: N21.0 Calculus in bladder (principal); N31.9 Neuromuscular dysfunction of bladder, unspecified; N20.0 Calculus of kidney; N39.0 Urinary tract infection, site not specified; I10 Essential (primary) hypertension; G82.50 Quadriplegia, unspecified; G82.54 Quadriplegia, C5-C7 incomplete; Z87.891 Personal history of nicotine dependence; Z91.018 Allergy to other foods; Z79.899 Other long term (current) drug therapy
CPT/HCPCS: 52318; 82365; J1100; J2185; J2405; J2704; J3010; 88300; 93005; 93010